=== PATIENT | female | born 1955 | race Caucasian/White ===

== ENCOUNTER 2017-09-30 10:01 | Inpatient (IN) | payer MEDICARE, SELFPAY ==
[2017-09-30] VITALS (24 sets, daily range): BP systolic 86–133; BP diastolic 55–107; PULSE 85–137; RESP 14–27; TEMP 36–37.3; O2SAT 87–100; BMI 17.4; BMI 17.8
--- NOTE | 2017-09-30 10:21 | ED.RN ---
PT LIVES ALONE. STATES FELL SOMETIME YESTERDAY UNSURE WHEN. POSSIBLY 1500 OR 1600. PT STATES LIVES ALONE. PT COLD. DRIED FECES NOTED TO BOTTOM OF FEET. PAYMENT POSTER NOTIFIED
--- NOTE | 2017-09-30 10:25 | CT_ITS ---
STUDY: CT BRAIN WITHOUT CONTRAST REASON FOR EXAM: Female, 62 years old. History of fall. RADIATION DOSAGE (If Supplied By Facility): CTDIvol = ( 44.99 ) mGy, DLP = ( 897.35 ) mGycm TECHNIQUE: Transaxial CT imaging of the brain was performed without administration of intravenous contrast material. Individualized dose optimization techniques were used for this CT. COMPARISON: None. FINDINGS: Normal soft tissue structures. Normal calvarium. Normal size ventricles and extra-axial spaces for the patient's age. Normal white matter tracts of the cerebral hemispheres. Normal basal ganglia and thalami. Normal brainstem. Normal cerebellum. There is no intracranial hemorrhage. There are no findings of an acute ischemic infarction. Normal visualized paranasal sinuses. CT/Brain/Head without Contrast IMPRESSION: Normal unenhanced CT scan of the brain. Electronically Signed: Cosmo Bravo MD at 12:58 EDT Tel [phone], Service support ,
--- NOTE | 2017-09-30 10:26 | EKG12_ITS ---
Test Reason : FOUND DOWN Blood Pressure : / mmHG Vent. Rate : 164 BPM Atrial Rate : 164 BPM P-R Int : 072 ms QRS Dur : 124 ms QT Int : 188 ms P-R-T Axes : 083 -83 085 degrees QTc Int : 310 ms Sinus rhythm Left axis deviation Lateral infarct , age undetermined Inferior infarct , age undetermined Abnormal ECG Confirmed by DAYO JEFFERS, KING ([id number]), pictures editor ISAIAS DAVENPORT ([id number]) on 10/08/2017 12:45:30 PM Referred By: BEBO Confirmed By:KING OSHEA MD
--- NOTE | 2017-09-30 10:26 | RAD_ITS ---
STUDY: X-RAY CHEST REASON FOR EXAM: Female, 62 years old. History of fall. TECHNIQUE: AP and lateral views of the chest. COMPARISON: None. FINDINGS: EKG electrodes are seen. Hyperinflation. Decreased bronchovascular markings in the upper lobes suggestive of emphysematous changes. Mild bibasilar atelectasis. There is no demonstrated pleural abnormality. Normal size heart. Normal mediastinum and leonel. Normal visualized pulmonary arteries. There is atherosclerotic tortuosity of the aortic arch and descending thoracic aorta. There are diffuse degenerative changes of the visualized thoracic spine. Healed left fractures. Prior cholecystectomy. RAD/Chest PA and Lateral IMPRESSION: Hyperinflation. Findings suggesting mild bibasilar atelectasis. Electronically Signed: Cosmo Bravo MD at 13:07 EDT Tel [phone], Service support ,
--- NOTE | 2017-09-30 10:27 | CT_ITS ---
STUDY: CT CERVICAL SPINE WITHOUT CONTRAST REASON FOR EXAM: Female, 62 years old. History of fall. RADIATION DOSAGE (If Supplied By Facility): CTDIvol = ( 12.03 ) mGy, DLP = ( 227.54 ) mGycm TECHNIQUE: High resolution transaxial imaging was performed without contrast material. Sagittal and coronal images were reconstructed. Individualized dose optimization techniques were used for this CT. COMPARISON: None FINDINGS: Normal craniovertebral junction. Normal anterior atlantoaxial articulation. Normal odontoid process. Normal cervical lordosis. Normal vertebral bodies and posterior osseous elements. C2-3: There is evidence of facet joint osteoarthritis and hypertrophy with bilateral neural foraminal stenosis. Uncovertebral arthrosis. C3-4: Moderate degree of disc space narrowing and disc degeneration. Marked degree of facet joint hypertrophy worse on the right side. Bilateral neural foraminal stenosis. Anterior listhesis of C3 on C4 most likely secondary to the facet joint osteoarthritis C4-5: Moderate degree of disc space narrowing. Subchondral sclerosis. Uncovertebral arthrosis. Facet joint osteoarthritis. Bilateral neural foraminal stenosis. C5-6: Marked degree of disc space narrowing. Spondylosis. Uncovertebral arthrosis. C6-7: Disc space narrowing. Atherosclerotic calcific plaque at the carotid bifurcations. Increased markings at the lung apices suggestive of scarring superimposed on emphysematous changes. CT/Spine Cervical without Contras IMPRESSION: Multilevel degenerative changes, as described above. Multilevel neural foraminal stenosis. Anterior listhesis of C3 on C4. Electronically Signed: Cosmo Bravo MD at 13:03 EDT Tel [phone], Service support ,
--- NOTE | 2017-09-30 10:27 | RAD_ITS ---
STUDY: X-RAY - PELVIS REASON FOR EXAM: Female, 62 years old. History of fall. TECHNIQUE: One view of the pelvis was obtained. COMPARISON: None. FINDINGS: There is a non-specific bowel gas pattern. Calcifications overlying the symphysis pubis most likely representing either calcified fibroids or possible urinary bladder calculi. Levoscoliosis of the lumbar spine. Normal bilateral iliac wings, sacroiliac joints and visualized sacrum. Normal visualized bilateral superior and inferior pubic rami. Normal pubic symphysis. Normal ischial tuberosities. Normal visualized right femoral head. Normal right acetabulum. Normal right hip joint. Normal visualized left femoral head. Normal left acetabulum. Normal left hip joint. RAD/Pelvis 1 or 2 Views IMPRESSION: No acute abnormality is seen. Electronically Signed: Cosmo Bravo MD at 13:06 EDT Tel [phone], Service support ,
--- NOTE | 2017-09-30 10:43 | ED.VISSUMM ---
- ER Visit Summary Date of Service: 09/30/17 Chief Complaint: Fall History of Present Illness: The patient is a [address] Crowley in [place]. She reports that she fell yesterday and was too weak to get up. She denies any blow to the head or loss of consciousness. She reports that she has neck pain is 5 out of 10 severity. She denies any back, shoulder, wrist, or hip pain. Patient reports that she has not been taking any of her medications for the past 2 months. She claims of a cough over the same timeframe. This is nonproductive. She denies any fever or chills. No chest pain or shortness of breath. She reports that she has had upper abdominal pain for the past 2 weeks. She has been nauseated without vomiting. She reports that her colostomy is draining normally. States that she has a headache is 6 out of 10 severity and generalized weakness. Physical Examination: Vitals: Stable. Afebrile. General: Well-developed and cachectic. Head: Normocephalic atraumatic. Neck: Supple, no lymphadenopathy. No JVD. Moderate tenderness that is diffuse over her neck. Cardiovascular: Regular rate and rhythm. No murmurs. Respiratory: No respiratory distress. Clear to auscultation bilaterally. Abdominal: Soft, mild tenderness palpation is diffuse over her upper abdomen, nondistended, normal bowel sounds. No guarding, rebound, or peritoneal signs. Back: Nontender. Extremities: Mild tenderness palpation to the right greater trochanter and moderate tenderness palpation of the left greater trochanter. No pain with internal/external rotation. Full range of motion without any difficulty. Skin: Normal color, no rash. Neurologic: Alert and oriented ?3. Cranial nerves II through XII are intact. Normal strength and sensation. Psych: Agitated. Test Results: EKG is sinus at 82 with very large T waves that are being counted twice. There are no ischemic changes. There is no old EKG for comparison. Her QRS is 124. CBC is more for a white count of 18.9 with 86 segmented neutrophils and 6 lymphocytes. Hemoglobin is 15.4. Chem-7 is remarkable for a BUN of 141 and creatinine of 8.47. CO2 is 7. Potassium is 8.8. Glucose is 120. Her creatinine last year was 1.381.69. Lactic acid is normal. LFTs marked for alk phos 163 and lipase of 477. CPKs normal. Blood alcohol level 0. Troponin is negative. Chest x-ray shows chronic changes. Pelvis x-ray shows no acute disease. CT brain is normal. CT C-spine shows degenerative changes. Emergency Department Course and Treatment: Patient had an IV placed. She is given a liter normal saline. She was given fentanyl and Zofran IV. The patient was treated with thank you bicarb, insulin, D50, and calcium gluconate for her hyperkalemia. She was given Kayexalate p.o. Patient was discussed with her son who reports that she is an alcoholic. She was given Ativan IV. Treatment Plan: Patient will be admitted to the ICU for further evaluation and treatment. She was discussed with Dr. Pittman. Disposition: Admitted in critical condition Impression: 1. Acute renal failure. 2. Hyperkalemia. 3. Alcoholism. 4. Critical care time 30 minutes. This note was generated with [employer] dictation software. It may contain incorrect words, spelling, and punctuation that were not noted in review of the chart prior to signing ED Disposition - Plan for ED Patient: Chief Complaint: Fall Referrals: Darshan Burns [Primary Care Provider] -
--- NOTE | 2017-09-30 10:46 | CASEMGMT ---
Addendum entered by Aliza Dennis 09/30/17 14:39: Original Note: Social Work Note Referral from bedside RN, Nivia Bhakta. Pt presented to ED after being found on the floor of her apartment. Has a colostomy bag, presented unkempt and with dog feces on the bottom of her feet. Per nursing pt is oriented to self only presently. Placed call to the pt's son, Ajit Silva. Per Ajit the pt lives in a second floor apartment with elevator access. He reports that this is not the first time she has had an episode like this and that she has been off of her medications for approximately a month. States that she is not compliant with them anyways, but that her insurance, [employer], will not pay for them at her usual pharmacy and they have to use the mail order pharmacy. Believes that she just got a delivery of medications yesterday. States that she also drinks with her medications which she would not do. He is unsure of how much she drinks, but states she at least tries to every day. Feels that he cannot stop her as she has done this for 45 years. Support provided. Per Ajit he is the payee and has POA, but is not sure he has HCPOA. Request that he bring documentation to hospital for review and SW may be able to assist with HCPOA if the pt becomes alert and oriented x3. Understanding expressed. Per Ajit the pt has been to [facility] and [facility] in the past. Reports that out of the past 15 years he would guess she has spent 2-3 in nursing homes. Confirms that the pt's PCP is Dr. Darshan Burns and her pharmacy is [facility]. Unsure of discharge plan at this time and inform that SW will f/u once pt admitted to unit. Placed call to Corey Escalante, with APS. Made report and suggested guardianship as son reports this is not the first episode and the PCP may be willing to document an expert evaluation for her inability to manage diagnoses and care. Informed that pt is anticipated to be admitted and inpatient SW can f/u with disposition once determined. Capri Mena, NUCLEAR PHYSICIAN, MUSHROOM PICKER
[2017-09-30] MEDS: 0.9% Normal Saline 1,000 ML 1000 ML IV (10:50)
[2017-09-30] MEDS: fentaNYL 100 MCG/2 ML Ampul 50 MCG IV (10:50)
[2017-09-30] MEDS: Ondansetron 4 MG/2 ML Vial IV (10:50)
[2017-09-30] MEDS: LORazepam 2 MG/ML Syringe 1 MG IV ×2 (11:32→13:46)
[2017-09-30 12:05] LABS: Absolute Lymphocyte Count 1.19 X10^3/ul (0.83-4.51); Absolute Neutrophil Count 16.2 X10^3/uL (2.0-7.7); Hematocrit 46.6 % (37-47); Hemoglobin 15.4 g/dl (12.0-15.0); Lymphocyte # 1.19 X10^3/ul (4.0); Lymphocyte % 6.3 % (19-41); Mean Corpuscular Hgb 34.5 pg (27.0-32.0); Mean Corpuscular Volume 104.3 fL (81-99); Mean Platelet Vol. 9.2 fl (6.2-12.0); Monocyte# 1.47 X10^3/uL; Monocyte% 7.8 % (0-10); Neutrophil # 16.24 X10^3/uL (2.7-7.7); Neutrophil % 85.7 % (47-70); Platelet Count 371 K/mm3 (150-450); RBC Distribution Width CV 15.1 % (11.6-14.6); RBC Distribution Width SD 57.5 fl (35.1-43.9); Red Blood Count 4.47 M/mm3 (4.2-5.4); White Blood Count 18.9 K/mm3 (4.4-11.0)
--- NOTE | 2017-09-30 12:05 | ED.RN ---
Bilateral elbows, ankles and outer sides of feet purple, originally thought it was related to being cold, but color has not improved with warm blankets. colostomy bag not attached correctly either, pt cleaned up and bag reattached.
[2017-09-30 12:09] LABS: Differential Indicated SCAN CRITERIA MET; POSITIVE COUNT NO; POSITIVE DIFFERENTIAL NO; POSITIVE MORPHOLOGY YES
[2017-09-30 12:22] LABS: CPK Total, Creatine Kinase 59 U/L (26-192)
[2017-09-30 12:30] LABS: Bacteria 0 SEEN /hpf (None Seen); Mucous, Urine 0 SEEN /hpf (<or=2+); White Blood Cells 0 SEEN /hpf (0-5)
[2017-09-30 12:31] LABS: Color, Urine Yellow (Yellow); Glucose, Dipstick Normal (Normal); Ketone-Dipstick Negative (Negative); Leukocyte Esterase-Dipstick Negative /ul (Negative); Nitrite-Dipstick Negative (Negative); Occult Blood-Urine 10 /ul (Negative); Protein-Dipstick 15 mg/dl (Negative); Specific Gravity, Urine 1.015 (1.002-1.030); Urine Bilirubin Dipstick Negative (Negative); Urine Clarity Sl. Cloudy (Clear); Urine Urobilinogen Normal (Normal)
[2017-09-30 12:37] LABS: Red Blood Cells-Urine 0-5 SEEN /hpf (0-5); Squamous Epithelial Cells - UA 0-5 SEEN /hpf (5-10)
[2017-09-30 12:42] LABS: Lactic Acid 1.2 mmol/L (0.4-2.0)
[2017-09-30 12:45] LABS: Alcohol, Blood (Medical)-Serum < 3.0 mg/dL
[2017-09-30 12:47] LABS: ALB/GLOB Ratio 0.9 RATIO (0.9-2.4); AST(SGOT) 20 U/L (15-37); Alanine Aminotransfer ALT/SGPT 22 U/L (13-56); Albumin, Serum 3.5 g/dL (3.2-5.0); Alkaline Phosphatase 163 U/L (45-117); Anion Gap 17 (5-15); BUN 141 mg/dL (7-18); BUN/Creat Ratio 16.6 RATIO (10-20); Calcium,Total 7.8 mg/dL (8.5-10.1); Chloride 109 mmol/L (98-107); Creatinine, Serum 8.47 mg/dL (0.55-1.02); EST Glomerular Filtration Rate 5 mL/min (>60); Est Glom Filt Rate - Afr Amer 6 mL/min (>60); Estimated Creatinine Clearance 4.87 ml/min; Glucose 120 mg/dL (74-106); Lipase 427 U/L (73-393); Potassium 8.8 mmol/L (3.5-5.1); Protein, Total 7.5 g/dL (6.4-8.2); Sodium Level 133 mmol/L (136-145)
[2017-09-30] MEDS: Albuterol 2.5 MG/3 ML VIAL.NEB. INHALATION (13:10)
[2017-09-30] MEDS: Sodium Bicarbonate 8.4% 50 ML Syringe 50 MEQ IV (13:22)
[2017-09-30] MEDS: Calcium Gluconate 1 GM/10 ML Vial IV (13:22)
[2017-09-30] MEDS: 0.9% Normal Saline 1,000 ML 999 ML IV ×2 (13:22→15:08)
[2017-09-30] MEDS: Dextrose 50%-Water 25 GM/50 ML DISP.SYRIN IV (13:22)
--- NOTE | 2017-09-30 14:04 | HP.PCM_ITS ---
History of Present Illness Date of Admission: 09/30/17 Chief Complaint: Found down The patient is a 62 year old F with past medical history of stage III chronic kidney disease, status post colostomy, essential hypertension who was found down at home today Apparently the patient was tried to make a bed at around 11 and 12 yesterday and fell, she tried to reconcile but unable to get up from his forehead down today and called the EMS and she was taken to the emergency room for further management. The patient was noted to be used, dishevelled with cold clammy skin. In the ED, CAT scan of the brain and neck did not reveal any acute findings. she is noted to have multilevel degenerative disc disease in the C-spine. She is found to have acute kidney injury with creatinine of 8.47, bicarbonate of 7, potassium of 8.8, sodium 133, WBC of 18.9. Her EKG showed sinus tachycardia with short WI interval with frequent PVCs. Treated with IV insulin and dextrose as well as sodium bicarbonate and calcium gluconate. When I saw her in the emergency room she appeared to be confused , she was mildly agitated and tremulous. She remains hemodynamically stable. Past Medical History Allergies No Known Allergies Allergy (Verified 10/21/16 13:39) Home Medications: Ambulatory Orders Medication Instructions Recorded Aspirin [Aspir-Low] 81 mg PO DAILY 10/21/16 Calcium Carbonate/Vitamin D3 1 each PO BID 10/21/16 [Calcium 600 + Vit D Caplet] Ferrous Sulfate 325 mg PO BID 10/21/16 Fluoxetine HCl 40 mg PO BID 10/21/16 Folic Acid 1 mg PO DAILY@0800 10/21/16 Hydrochlorothiazide 12.5 mg PO DAILY 10/21/16 Multivitamins,Ther W-Minerals 1 tablet PO DAILY 10/21/16 [Multivitamin With Minerals] Omeprazole [Prilosec] 20 mg PO DAILY 10/21/16 Oxybutynin [Ditropan] 10 mg PO DAILY 10/21/16 Potassium Chloride [K-Dur] 20 meq PO BID 10/21/16 Pramipexole Di-HCl [Mirapex] 0.25 mg PO DAILY 10/21/16 Quetiapine Fumarate [Seroquel] 25 mg PO DAILY 10/21/16 Quetiapine Fumarate [Seroquel] 400 mg PO DAILY 10/21/16 Sodium Bicarbonate 650 mg PO DAILY 10/21/16 Valproic Acid [Depakene] 250 mg PO TID 10/21/16 Vitamin E 400 units PO TID 10/21/16 Lisinopril [Zestril] 20 mg PO DAILY 09/30/17 Loperamide [Imodium] 2 mg PO BID PRN PRN 09/30/17 Mirtazapine [Remeron] 15 mg PO QHS 09/30/17 Sodium Bicarbonate 1,300 mg PO DAILY 09/30/17 Spironolactone [Aldactone] 25 mg PO DAILY 09/30/17 Smoking Status: Current every day smoker - *Family History Maternal History Items: No pertinent history Review of Systems Comment: Unable to obtain due to confusion. VTE Information - Inpt Only VTE Present on Admission: No VTE Mechan Device Prophylaxis: SCD's VTE Pharm Prophylaxis ordered?: Yes - Physical Exam General: Confused, Disoriented, Non-Cooperative HEENT: Atraumatic Oral: Dry Mucosa Neck: Supple Lungs: Clear to auscultation Cardiovascular: Regular rate, Normal S1, Normal S2 Abdomen: Bowel Sounds Present, Soft, Non Tender Extremities: No edema Neurological: Cranial nerves II-XII grossly intact, Deep Tendon Reflexes 2+/4 and Symmetrical, Motor Exam 5/5 strength throughout Psych/Mental Status: Normal Affect Vital Signs Temp Pulse Resp BP Pulse Ox 96.8 F L 110 H 22 H 132/107 H 95 09/30/17 10:02 09/30/17 13:47 09/30/17 13:47 09/30/17 13:47 09/30/17 13:47 Oxygen Delivery Method Room Air Assessment/Plan 1. Acute metabolic encephalopathy; CT scan of the brain is nonacute, we will continue to monitor patient closely with the expectation that her mental status would improve with correction of her metabolic derangements. 2. Acute kidney injury superimposed on stage III chronic kidney disease; we will hydrate with IV fluids and avoid potential nephrotoxic agents, we will dose medications based on her current GFR, we will obtain renal ultrasound and consult public policy mediator. 3. Metabolic acidosis; this is most likely due combination of #2 and loss of bicarb from her colostomy, I would place her on sodium bicarb drip. 4. Severe hyperkalemia; the patient received sodium bicarbonate, calcium gluconate, IV insulin and dextrose as well as Kayexalate which she refused to take. I would repeat a potassium level now and give another round of treatment if need be. 5. Leukocytosis of unclear etiology; see any evidence of infection at this point, chest x-ray did not show any pneumonia and urinalysis showed no pyuria. We will continue to monitor and repeat CBC in a.m. 6. status Post fall; PT/OT eval and treatment when appropriate, the patient may benefit from ECF placement due to risk of recurrent falls. 7. DVT prophylaxis with subcutaneous heparin. Code Visit Inpatient E&M: 21350 Init Hosp L3
[2017-09-30 14:14] LABS: Valproic Acid (Depakene) Level 10 ug/mL (50-100)
[2017-09-30 15:21] LABS: Anion Gap 15 (5-15); BUN 139 mg/dL (7-18); BUN/Creat Ratio 17.8 RATIO (10-20); Calcium,Total 7.8 mg/dL (8.5-10.1); Chloride 112 mmol/L (98-107); Creatinine, Serum 7.82 mg/dL (0.55-1.02); EST Glomerular Filtration Rate 6 mL/min (>60); Est Glom Filt Rate - Afr Amer 7 mL/min (>60); Estimated Creatinine Clearance 4.91 ml/min; Glucose 123 mg/dL (74-106); Potassium 7.8 mmol/L (3.5-5.1); Sodium Level 137 mmol/L (136-145)
--- NOTE | 2017-09-30 15:22 | CON.PCM_ITS ---
Problem List (1) Alcoholism Status: Suspected (2) Acute renal failure Status: Acute Qualifiers: Acute renal failure type: with acute renal cortical necrosis Qualified Code (s): N17.1 - Acute kidney failure with acute cortical necrosis (3) Hyperkalemia Status: Acute (4) Malnutrition of moderate degree Status: Chronic Reason for Consult Date of Consultation: 09/30/17 Reason for Consultation: Hyperkalemia History of Present Illness: The patient is a 62 year old F, with little known past medical history, who presented to [facility] on 09/30/2017 after being found down at home. Patient reportedly tried to make a bed around 11 or 12 yesterday and fell and was unable to stand back up. Per report, patient was found disheveled with cold clammy skin and covered in dog feces. Patient is unable to provide any history at this time. Patient's son reportedly talked to nursing in the ER and stated that she is a longtime alcoholic and that she was a full code. He is unable to be reached at this time. In the emergency department, CT scans did not reveal any acute findings. Patient was noted to have a creatinine of 8.47, bicarbonate of 7, potassium of 8.8 and leukocytosis. Patient was given a hyperkalemia cocktail, but reportedly refused p.o. Kayexalate. Patient was given 2 L of IV fluids with some urine output reported. Patient was reportedly confused and mildly agitated , but no seizure activity was reported. Unknown last drink history. Unknown if patient has a history of DTs. Per report, patient has not taken any medications in the last 2 months. Past Medical History Past Medical History (Chronic Problems): Chronic Problems Malnutrition of moderate degree (Chronic) Allergies No Known Allergies Allergy (Verified 10/21/16 13:39) Home Medications: Ambulatory Orders Medication Instructions Recorded Aspirin [Aspir-Low] 81 mg PO DAILY 10/21/16 Calcium Carbonate/Vitamin D3 1 each PO BID 10/21/16 [Calcium 600 + Vit D Caplet] Ferrous Sulfate 325 mg PO BID 10/21/16 Fluoxetine HCl 40 mg PO BID 10/21/16 Folic Acid 1 mg PO DAILY@0800 10/21/16 Hydrochlorothiazide 12.5 mg PO DAILY 10/21/16 Multivitamins,Ther W-Minerals 1 tablet PO DAILY 10/21/16 [Multivitamin With Minerals] Omeprazole [Prilosec] 20 mg PO DAILY 10/21/16 Oxybutynin [Ditropan] 10 mg PO DAILY 10/21/16 Potassium Chloride [K-Dur] 20 meq PO BID 10/21/16 Pramipexole Di-HCl [Mirapex] 0.25 mg PO DAILY 10/21/16 Quetiapine Fumarate [Seroquel] 25 mg PO DAILY 10/21/16 Quetiapine Fumarate [Seroquel] 400 mg PO DAILY 10/21/16 Sodium Bicarbonate 650 mg PO DAILY 10/21/16 Valproic Acid [Depakene] 250 mg PO TID 10/21/16 Vitamin E 400 units PO TID 10/21/16 Lisinopril [Zestril] 20 mg PO DAILY 09/30/17 Loperamide [Imodium] 2 mg PO BID PRN PRN 09/30/17 Mirtazapine [Remeron] 15 mg PO QHS 09/30/17 Sodium Bicarbonate 1,300 mg PO DAILY 09/30/17 Spironolactone [Aldactone] 25 mg PO DAILY 09/30/17 Smoking Status: Current every day smoker - *Family History Maternal History Items: No pertinent history Review of Systems Unable to obtain accurate/complete ROS d/t: See HPI Patient Problems: Active and Suspected Problems Alcoholism (Suspected) Acute renal failure (Acute) Hyperkalemia (Acute) Objective: All imaging was personally reviewed and I agree with the formal interpretation. Chest x-ray did show some hyperinflation, but no obvious infiltrates are appreciated. - Physical Exam General: Alert, Confused, Disoriented, - - Active chills noted. Cachectic. Not interacting appropriately. HEENT: Atraumatic, PERRLA, EOMI, Normocephalic, - - Scleral icterus or injection noted. Oral: No Gingival or Mucosal Lesions/ Ulcerations, Dry Mucosa Neck: Supple, No JVD, No Nodes, Trachea Midline Lungs: No rhonchi, No wheeze, No rales, Diminished Cardiovascular: Normal S1, Normal S2, No murmurs, No rub noted, No Gallop, Tachycardic Abdomen: Bowel Sounds Present, Soft, Non Tender, Non-Distended, - - Colostomy is clean, dry and intact. No blood noted. Extremities: No cyanosis, No edema, Clubbing, Diminished Peripheral Pulses Skin: Ulcer/ Wound - Stage I decubitus on the right hip., - - Scattered small ecchymotic areas. Musculoskeletal: No Tenderness to Palpation of Joints or Extremities, Cachexia, Muscle Wasting Lymphatic: No Cervical, Supraclavicular, or Inguinal Adenopathy Neurological: - - Significant tremor noted in all extremities. Moves all extremities spontaneously. Sensation appears to be intact. No nystagmus or facial droop is appreciated. Psych/Mental Status: Impulsive, Restless Vital Signs Temp Pulse Resp BP Pulse Ox 36.0 C L 110 H 22 H 132/107 H 95 09/30/17 10:02 09/30/17 13:47 09/30/17 13:47 09/30/17 13:47 09/30/17 13:47 Oxygen Delivery Method Room Air Weight: 42.8 kg Body Mass Index (BMI) 17.8 Laboratory Tests Past 24 Hrs 09/30/17 09/30/17 14:40 15:00 Sodium Pending Potassium Pending Chloride Pending Carbon Dioxide Pending Anion Gap Pending BUN Pending Creatinine Pending Est GFR (MDRD) Af Amer Pending Est GFR (MDRD) Non-Af Pending BUN/Creatinine Ratio Pending Glucose Pending Calcium Pending MRSA (PCR) Pending Assessment/Plan Active and Suspected Problems Alcoholism (Suspected) Acute renal failure (Acute) Hyperkalemia (Acute) RECOMMENDATIONS: 1. Aggressive fluid resuscitation 2. Initiate bicarbonate drip 3. Possible need for renal replacement therapy 4. CIWA protocol 5. Repeat chest x-ray tomorrow 6. ST/PT/OT consults 7. Attempt to get more information from son/verify CODE STATUS IMPRESSIONS: 1. Acute kidney injury on CKD stage III/severe hyperkalemia/metabolic acidosis Unclear etiology at this time. Patient does appear to have urine output. Will attempt to volume resuscitate. Patient has been placed on a bicarbonate drip. Patient does have a colostomy, but is refusing to take any Kayexalate at this time. Cannot exclude the need for urgent renal replacement therapy. Nephrology has been consulted. Await their recommendations. 2. Metabolic encephalopathy Patient with multiple etiologies for metabolic encephalopathy including uremia, alcohol withdrawal, severe hyperkalemia, malnutrition and renal failure. Will attempt to address electrolytes. Continue with delirium protocol. Patient is on benzodiazepines for alcohol withdrawal. 3. Probable alcohol withdrawal Reported alcohol history at baseline. Unclear when patient's last drink was. Patient does have some Depakote in her system, but no alcohol. Patient has been placed on CIWA protocol. 4. Found down Patient's CPK is not very elevated at this time. It is unclear if this is secondary to decreased perfusion or low muscle mass. Patient does have a stage I decubitus ulcer on her right hip. Continue to trend troponins. 5. Poor background information/malnutrition/possible psychiatric illness Complicates care, management, recovery and prognosis. Unable to verify baseline medications. Patient has not been on medications for the last 2 months. Would hold all nonnecessary medications. Patient will need a swallow study before any p.o. intake. TIME: 45 minutes critical care time spent addressing patient's acute kidney injury , metabolic encephalopathy, alcohol withdrawal, review of all data and collaboration with care team. Code Visit 9xxxx: [id number] Critical care first hour
[2017-09-30 16:00] LABS: International Normalized Ratio 1.2; Prothrombin Time (Protime)PT. 14.9 SECONDS (11.7-14.9)
[2017-09-30 16:01] LABS: Partial Thromboplast Time 26.8 Seconds (24.1-36.2)
[2017-09-30 16:05] LABS: Base Excess -24 mmol/L (-2 to +2); Bicarbonate 5.9 mmol/L (22-26); Blood Gas Specimen Type ART; O2 Delivery Device Nasal Can; PO2 83 mmHG (75-100); SITE L Brachial; SO2 92 % (95-99); Time Given 1602; Total Carbon Dioxide 6 mmol/L; pCO2 18.2 mmHg (35-45); pH 7.12 (7.35-7.45)
[2017-09-30] MEDS: 0.9% Normal Saline 1,000 ML 75 ML IV (16:19)
[2017-09-30 17:34] LABS: M R Staph aureus DNA By PCR Negative (Negative); Probe Check PASS; Specimen Processing Control PASS
--- NOTE | 2017-09-30 19:00 | RAD_ITS ---
STUDY: X-RAY - ABDOMEN/PELVIS REASON FOR EXAM: Female, 62 years old. NG tube placement. TECHNIQUE: Single AP view of the abdomen / pelvis. COMPARISON: None. FINDINGS: Normal visualized lung bases. NG tube traverse the GE junction with tip overlying the distal stomach. Scattered areas of small bowel dilatation are present without significant air-fluid levels. There is no demonstrated free abdominal air. The visualized liver, spleen and kidneys are grossly normal in size and morphology. Normal soft tissue structures. Normal visualized osseous structures. RAD/Abdomen Single View (Portable) IMPRESSION: 1. NG tube tip overlies the distal stomach. 2. Scattered central areas of small bowel dilatation. Electronically Signed: Pete Toussaint DO at 22:59 EDT , Service support ,
[2017-09-30 19:10] LABS: Urine Sodium 56 mmol/L (Not Establ.)
[2017-09-30 20:42] LABS: Anion Gap 15 (5-15); BUN 135 mg/dL (7-18); BUN/Creat Ratio 19.1 RATIO (10-20); Calcium,Total 7.4 mg/dL (8.5-10.1); Chloride 114 mmol/L (98-107); Creatinine, Serum 7.08 mg/dL (0.55-1.02); EST Glomerular Filtration Rate 6 mL/min (>60); Est Glom Filt Rate - Afr Amer 8 mL/min (>60); Estimated Creatinine Clearance 5.42 ml/min; Glucose 109 mg/dL (74-106); Potassium 7.1 mmol/L (3.5-5.1); Sodium Level 140 mmol/L (136-145)
[2017-09-30] MEDS: 0.9% NaCl Peripheral Flush Adult/Peds IV (22:20)
[2017-09-30] MEDS: LORazepam 2 MG/ML Syringe IV (22:20)
--- NOTE | 2017-09-30 22:32 | PCM.CONS.R ---
Consultation - Renal 09/30/17 PCP/ Referring MD: Requesting physician: Dr Pittman Primary care physician: Darshan Burns Reason for Consultation:: AMY, hyperkalemia, severe metabolic acidosis - History of Present Illness History of Present Illness: The patient is a 62 year old F admitted for AMY, hyperkalemia after falling at home, unable to get up due to weakness. She was found down for unknown period of time after she was able to call EMS. She has history of chronic kidney disease stage 3 with baseline creatinine 1.38 in January 2017, s/p colostomy for bacterial infection, and essential hypertension. She is a poor historian, agitated, confused, disoriented. She has a history of alcohol abuse, hospitalized multiple times for similar events according to her son. In the ED, CT of the brain was negative for acute changes. She had a creatinine of 8.47, bicarbonate of 7, potassium of 8.8, sodium 133, WBC of 18.9. EKG showed sinus tachycardia with peaked T waves. She was treated with IV insulin and dextrose as well as sodium bicarbonate and calcium gluconate. She received 3L fluid bolus and continued on iv fluids with bicarbonate drip. She has brown liquid stool in ostomy. She has clear yellow urine in valencia. She was not able to take kayexalate orally due to confusion. Medication list included diuretics, lisinopril, potassium supplement, spironolactone but unclear if she has been taking any of her medications. - Allergies Allergies: Allergies No Known Allergies Allergy (Verified 10/21/16 13:39) - Current Medications Current Medications: Current Medications [facility] Ferrous Sulfate (Ferrous Sulfate) 325 mg NG BIDCM [facility] Fluoxetine HCl (Prozac) 40 mg NG BID [facility] Heparin Sodium (Porcine) (Heparin Na) 5,000 unit SC BID [facility] Sodium Bicarbonate 150 meq/ (Dextrose) 1,150 mls @ 75 mls/hr IV .[id number] [facility] Last Admin: 09/30/17 15:39 Dose: 75 mls/hr Sodium Chloride () 1,000 mls @ 75 mls/hr IV .[id number] [facility] Last Admin: 09/30/17 16:19 Dose: 75 mls/hr Folic Acid 1 mg/ Sodium (Chloride) 50.2 mls @ 200 mls/hr IV DAILY [facility] Last Admin: 09/30/17 16:19 Dose: 200 mls/hr Thiamine HCl 100 mg/ Sodium (Chloride) 51 mls @ 200 mls/hr IV DAILY [facility] Last Admin: 09/30/17 16:01 Dose: 200 mls/hr Sodium Chloride () 250 mls @ 999 mls/hr IV .Q16M ONE Stop: 09/30/17 22:40 Loperamide HCl (Imodium) 2 mg NG BID PRN PRN PRN Reason: diarrhea Lorazepam (Ativan) 2 mg IV Q2H PRN PRN; Protocol PRN Reason: CIWA score > 8 but <15 Lorazepam (Ativan) 2 mg IV UD PRN; Protocol PRN Reason: CIWA score >/=15. Lorazepam (Ativan) 2 mg NG Q2H PRN PRN; Protocol PRN Reason: CIWA score > 8 but <15 Lorazepam (Ativan) 2 mg NG UD PRN; Protocol PRN Reason: CIWA score >/=15. Magnesium Hydroxide (Milk Of Magnesia) 30 ml NG DAILY PRN PRN PRN Reason: Constipation Mirtazapine (Remeron) 15 mg NG QHS [facility] Pantoprazole Sodium (Protonix) 20 mg PO DAILY [facility] Pramipexole Dihydrochloride (Mirapex) 0.25 mg NG DAILY [facility] Quetiapine Fumarate (Seroquel) 25 mg NG DAILY [facility] Sodium Chloride () 5 - 30 ml IV UD PRN PRN Reason: SALINE FLUSH Valproic Acid (Depakene) 250 mg NG TID [facility] - Past Medical History Past Medical History (Chronic Problems): Chronic Problems Depression (Chronic) Hypertension (Chronic) Stage III chronic kidney disease (Chronic) Alcoholism (Chronic) Acute renal failure (Chronic) Malnutrition of moderate degree (Chronic) - Past Surgical History Surgical History: - - ostomy - Social History Smoking Status: Current every day smoker - Family History Maternal History Items: Unknown, - - unknown, pt unable to provide history Paternal History Items: Unknown Review of Systems Unable to obtain accurate/complete ROS d/t: confused, agitated, combative, uncooperative, yelling out wants to go home Patient Problems: Active and Suspected Problems Metabolic acidosis (Acute) Status post end ileostomy (Acute) Acute on chronic renal failure (Acute) Hyperkalemia (Acute) Ischemia of stoma (Suspected) - Physical Exam General: Confused, Disoriented, Non-Cooperative, - - agitated, combative, tremulous lips, mouth/jaw HEENT: PERRLA, EOMI Oral: Dry Mucosa Neck: Supple Lungs: Clear to auscultation Cardiovascular: No rub noted, Tachycardic Abdomen: Bowel Sounds Present, Soft, Non Tender, - - ostomy with brown liquid stool Extremities: No edema Skin: No rashes, - - tattoo on ankles Musculoskeletal: Cachexia, Muscle Wasting Neurological: - - restless, combative Psych/Mental Status: Agitated, Anxious Vital Signs Temp Pulse Resp BP Pulse Ox 98.0 F 125 H 22 H 123/70 H 90 09/30/17 16:00 09/30/17 21:00 09/30/17 21:00 09/30/17 21:00 09/30/17 16:00 Oxygen Flow Rate (L/min) 3 Oxygen Delivery Method Nasal Cannula Weight: 42.8 kg Body Mass Index (BMI) 17.8 Intake and Output for Last 24 Hours 09/28/17 09/29/17 09/30/17 23:59 23:59 23:59 Intake Total 1891 / 1891 Output Total 1300 / 1300 Balance 591 / 591 Laboratory Tests Past 24 Hrs 09/30/17 09/30/17 09/30/17 14:40 15:00 15:40 PT 14.9 INR 1.2 APTT 26.8 Specimen Type Sample Site pH Bicarbonate Actual POC Total CO2 Base Excess O2 Saturation ABG pCO2 ABG pO2 O2 Delivery Device Liter Flow Blood Gas Notified Whom Blood Gas Notified Time Sodium 137 Potassium 7.8 H* Chloride 112 H Carbon Dioxide 10.0 L Anion Gap 15 BUN 139 H* Creatinine 7.82 H* Estim Creat Clear Calc 4.91 Est GFR (MDRD) Af Amer 7 L Est GFR (MDRD) Non-Af 6 L BUN/Creatinine Ratio 17.8 Glucose 123 H Calcium 7.8 L Ur Random Sodium Urine Creatinine MRSA (PCR) Negative 09/30/17 09/30/17 09/30/17 16:03 18:50 19:53 PT INR APTT Specimen Type ART Sample Site L Brachial pH 7.12 L* Bicarbonate Actual 5.9 L POC Total CO2 6 Base Excess -24 L O2 Saturation 92 L ABG pCO2 18.2 L* ABG pO2 83 O2 Delivery Device Nasal Can Liter Flow 3.0 Blood Gas Notified Whom ICU Blood Gas Notified Time 1602 Sodium 140 Potassium 7.1 H* Chloride 114 H Carbon Dioxide 11.0 L Anion Gap 15 BUN 135 H* Creatinine 7.08 H Estim Creat Clear Calc 5.42 Est GFR (MDRD) Af Amer 8 L Est GFR (MDRD) Non-Af 6 L BUN/Creatinine Ratio 19.1 Glucose 109 H Calcium 7.4 L Ur Random Sodium 56 Urine Creatinine 68.40 MRSA (PCR) Clinical Impression(s) from Imaging Studies Brain CT 09/30/17 10:25 IMPRESSION: Normal unenhanced CT scan of the brain. Electronically Signed: Cosmo Bravo MD at 12:58 EDT Tel [phone], Service support , Chest X-Ray 09/30/17 10:26 IMPRESSION: Hyperinflation. Findings suggesting mild bibasilar atelectasis. Electronically Signed: Cosmo Bravo MD at 13:07 EDT Tel [phone], Service support , Cervical Spine CT 09/30/17 10:27 IMPRESSION: Multilevel degenerative changes, as described above. Multilevel neural foraminal stenosis. Anterior listhesis of C3 on C4. Electronically Signed: Cosmo Bravo MD at 13:03 EDT Tel [phone], Service support , Pelvis X-Ray 09/30/17 10:27 IMPRESSION: No acute abnormality is seen. Electronically Signed: Cosmo Bravo MD at 13:06 EDT Tel [phone], Service support , Assessment/Plan Active and Suspected Problems Metabolic acidosis (Acute) Status post end ileostomy (Acute) Acute on chronic renal failure (Acute) Hyperkalemia (Acute) Ischemia of stoma (Suspected) 1. AMY due to profound dehydration, ATN. continue fluid resuscitation. Check urine sodium, creatine. 2. Metabolic, Uremic encephalopathy with DT's 3 Acute hyperkalemia persistent, unresponsive to medical therapy. correct with dialysis 4. Shock with leukocytosis, cx sent. 5. Severe AG metabolic acidosis refractory to bicarbonate replacement. Correct with urgent dialysis 6. Hx ETOH abuse per pt son 7. s/p colostomy with high ostomy output, increased GI loss. 8. Urgent dialysis tonight. Pt son consent to dialysis and dialysis catheter placement. Seen on dialysis, run even on 2K for 2.5hrs.
--- NOTE | 2017-09-30 22:42 | CON.PCM_ITS ---
Consultation - Renal 09/30/17 PCP/ Referring MD: Requesting physician: Dr Pittman Primary care physician: Darshan Burns Reason for Consultation:: AMY, hyperkalemia, severe metabolic acidosis - History of Present Illness History of Present Illness: The patient is a 62 year old F admitted for AMY, hyperkalemia after falling at home, unable to get up due to weakness. She was found down for unknown period of time after she was able to call EMS. She has history of chronic kidney disease stage 3 with baseline creatinine 1.38 in January 2017, s/p colostomy for bacterial infection, and essential hypertension. She is a poor historian, agitated, confused, disoriented. She has a history of alcohol abuse, hospitalized multiple times for similar events according to her son. In the ED, CT of the brain was negative for acute changes. She had a creatinine of 8.47, bicarbonate of 7, potassium of 8.8, sodium 133, WBC of 18.9. EKG showed sinus tachycardia with peaked T waves. She was treated with IV insulin and dextrose as well as sodium bicarbonate and calcium gluconate. She received 3L fluid bolus and continued on iv fluids with bicarbonate drip. She has brown liquid stool in ostomy. She has clear yellow urine in [place]. She was not able to take kayexalate orally due to confusion. Medication list included diuretics, lisinopril, potassium supplement, spironolactone but unclear if she has been taking any of her medications. - Allergies Allergies: Allergies No Known Allergies Allergy (Verified 10/21/16 13:39) - Current Medications Current Medications: Current Medications [facility]ir[facility], [facility]) [facility] Ferrous Sulfate (Ferrous Sulfate) 325 mg NG BIDCM [facility] Fluoxetine HCl (Prozac) 40 mg NG BID [facility] Heparin Sodium (Porcine) (Heparin Na) 5,000 unit SC BID [facility] Sodium Bicarbonate 150 meq/ (Dextrose) 1,150 mls @ 75 mls/hr IV .[id number] [facility] Last Admin: 09/30/17 15:39 Dose: 75 mls/hr Sodium Chloride () 1,000 mls @ 75 mls/hr IV .[id number] [facility] Last Admin: 09/30/17 16:19 Dose: 75 mls/hr Folic Acid 1 mg/ Sodium (Chloride) 50.2 mls @ 200 mls/hr IV DAILY [facility] Last Admin: 09/30/17 16:19 Dose: 200 mls/hr Thiamine HCl 100 mg/ Sodium (Chloride) 51 mls @ 200 mls/hr IV DAILY [facility] Last Admin: 09/30/17 16:01 Dose: 200 mls/hr Sodium Chloride () 250 mls @ 999 mls/hr IV .Q16M ONE Stop: 09/30/17 22:40 Loperamide HCl (Imodium) 2 mg NG BID PRN PRN PRN Reason: diarrhea Lorazepam (Ativan) 2 mg IV Q2H PRN PRN; Protocol PRN Reason: CIWA score > 8 but <15 Lorazepam (Ativan) 2 mg IV UD PRN; Protocol PRN Reason: CIWA score >/=15. Lorazepam (Ativan) 2 mg NG Q2H PRN PRN; Protocol PRN Reason: CIWA score > 8 but <15 Lorazepam (Ativan) 2 mg NG UD PRN; Protocol PRN Reason: CIWA score >/=15. Magnesium Hydroxide (Milk Of Magnesia) 30 ml NG DAILY PRN PRN PRN Reason: Constipation Mirtazapine (Remeron) 15 mg NG QHS [facility] Pantoprazole Sodium (Protonix) 20 mg PO DAILY [facility] Pramipexole Dihydrochloride (Mirapex) 0.25 mg NG DAILY [facility] Quetiapine Fumarate (Seroquel) 25 mg NG DAILY [facility] Sodium Chloride () 5 - 30 ml IV UD PRN PRN Reason: SALINE FLUSH Valproic Acid (Depakene) 250 mg NG TID [facility] - Past Medical History Past Medical History (Chronic Problems): Chronic Problems Depression (Chronic) Hypertension (Chronic) Stage III chronic kidney disease (Chronic) Alcoholism (Chronic) Acute renal failure (Chronic) Malnutrition of moderate degree (Chronic) - Past Surgical History Surgical History: - - ostomy - Social History Smoking Status: Current every day smoker - Family History Maternal History Items: Unknown, - - unknown, pt unable to provide history Paternal History Items: Unknown Review of Systems Unable to obtain accurate/complete ROS d/t: confused, agitated, combative, uncooperative, yelling out wants to go home Patient Problems: Active and Suspected Problems Metabolic acidosis (Acute) Status post end ileostomy (Acute) Acute on chronic renal failure (Acute) Hyperkalemia (Acute) Ischemia of stoma (Suspected) - Physical Exam General: Confused, Disoriented, Non-Cooperative, - - agitated, combative, tremulous lips, mouth/jaw HEENT: PERRLA, EOMI Oral: Dry Mucosa Neck: Supple Lungs: Clear to auscultation Cardiovascular: No rub noted, Tachycardic Abdomen: Bowel Sounds Present, Soft, Non Tender, - - ostomy with brown liquid stool Extremities: No edema Skin: No rashes, - - tattoo on ankles Musculoskeletal: Cachexia, Muscle Wasting Neurological: - - restless, combative Psych/Mental Status: Agitated, Anxious Vital Signs Temp Pulse Resp BP Pulse Ox 98.0 F 125 H 22 H 123/70 H 90 09/30/17 16:00 09/30/17 21:00 09/30/17 21:00 09/30/17 21:00 09/30/17 16:00 Oxygen Flow Rate (L/min) 3 Oxygen Delivery Method Nasal Cannula Weight: 42.8 kg Body Mass Index (BMI) 17.8 Intake and Output for Last 24 Hours 09/28/17 09/29/17 09/30/17 23:59 23:59 23:59 Intake Total 1891 / 1891 Output Total 1300 / 1300 Balance 591 / 591 Laboratory Tests Past 24 Hrs 09/30/17 09/30/17 09/30/17 14:40 15:00 15:40 PT 14.9 INR 1.2 APTT 26.8 Specimen Type Sample Site pH Bicarbonate Actual POC Total CO2 Base Excess O2 Saturation ABG pCO2 ABG pO2 O2 Delivery Device Liter Flow Blood Gas Notified Whom Blood Gas Notified Time Sodium 137 Potassium 7.8 H* Chloride 112 H Carbon Dioxide 10.0 L Anion Gap 15 BUN 139 H* Creatinine 7.82 H* Estim Creat Clear Calc 4.91 Est GFR (MDRD) Af Amer 7 L Est GFR (MDRD) Non-Af 6 L BUN/Creatinine Ratio 17.8 Glucose 123 H Calcium 7.8 L Ur Random Sodium Urine Creatinine MRSA (PCR) Negative 09/30/17 09/30/17 09/30/17 16:03 18:50 19:53 PT INR APTT Specimen Type ART Sample Site L Brachial pH 7.12 L* Bicarbonate Actual 5.9 L POC Total CO2 6 Base Excess -24 L O2 Saturation 92 L ABG pCO2 18.2 L* ABG pO2 83 O2 Delivery Device Nasal Can Liter Flow 3.0 Blood Gas Notified Whom ICU Blood Gas Notified Time 1602 Sodium 140 Potassium 7.1 H* Chloride 114 H Carbon Dioxide 11.0 L Anion Gap 15 BUN 135 H* Creatinine 7.08 H Estim Creat Clear Calc 5.42 Est GFR (MDRD) Af Amer 8 L Est GFR (MDRD) Non-Af 6 L BUN/Creatinine Ratio 19.1 Glucose 109 H Calcium 7.4 L Ur Random Sodium 56 Urine Creatinine 68.40 MRSA (PCR) Clinical Impression(s) from Imaging Studies Brain CT 09/30/17 10:25 IMPRESSION: Normal unenhanced CT scan of the brain. Electronically Signed: Cosmo Bravo MD at 12:58 EDT Tel [phone], Service support , Chest X-Ray 09/30/17 10:26 IMPRESSION: Hyperinflation. Findings suggesting mild bibasilar atelectasis. Electronically Signed: Cosmo Bravo MD at 13:07 EDT Tel [phone], Service support , Cervical Spine CT 09/30/17 10:27 IMPRESSION: Multilevel degenerative changes, as described above. Multilevel neural foraminal stenosis. Anterior listhesis of C3 on C4. Electronically Signed: Cosmo Bravo MD at 13:03 EDT Tel [phone], Service support , Pelvis X-Ray 09/30/17 10:27 IMPRESSION: No acute abnormality is seen. Electronically Signed: Cosmo Bravo MD at 13:06 EDT Tel [phone], Service support , Assessment/Plan Active and Suspected Problems Metabolic acidosis (Acute) Status post end ileostomy (Acute) Acute on chronic renal failure (Acute) Hyperkalemia (Acute) Ischemia of stoma (Suspected) 1. AMY due to profound dehydration, ATN. continue fluid resuscitation. Check urine sodium, creatine. 2. Metabolic, Uremic encephalopathy with DT's 3 Acute hyperkalemia persistent, unresponsive to medical therapy. correct with dialysis 4. Shock with leukocytosis, cx sent. 5. Severe AG metabolic acidosis refractory to bicarbonate replacement. Correct with urgent dialysis 6. Hx ETOH abuse per pt son 7. s/p colostomy with high ostomy output, increased GI loss. 8. Urgent dialysis tonight. Pt son consent to dialysis and dialysis catheter placement. Seen on dialysis, run even on 2K for 2.5hrs.
--- NOTE | 2017-09-30 22:50 | PCM.OP.BLANK ---
Operative Report Date of Procedure: 09/30/17 Left femoral temp dialysis catheter insertion for hemodialysis. pt placed supine with 4 point restraint due to agitation left femoral site prepped and sterile drapped. 1% lidocaine used for local anesthesia 20cm mahurkar catheter placed using Seldinger technique. Good venous return x2. Guidewire removed. Pt tolerated procedure well.
[2017-10-01] VITALS (36 sets, daily range): BP systolic 64–120; BP diastolic 31–81; PULSE 108–130; RESP 15–31; TEMP 37.4–38.7; O2SAT 93–100
[2017-10-01] MEDS: Heparin Injection (Vial) 5,000 UNIT/ML VIAL 5000 UNIT SC ×2 (01:46→16:24)
[2017-10-01] MEDS: FLUoxetine 20 MG Capsule 40 MG NG ×2 (01:48→12:13)
[2017-10-01] MEDS: Mirtazapine 15 MG Tablet NG (01:49)
[2017-10-01] MEDS: Heparin 10,000 UNITS/10 ML Vial IV (01:50)
--- NOTE | 2017-10-01 03:34 | DIALYSIS ---
01:30-HD x 2.5 hours complete. Tolerated tx well. Ran on 2k bath. Positive 700ml post tx. Used left femoral catheter. No pull from arterial port. Lines reversed during tx. Catheter closed with heparin per fill volume. See tx sheet for more details. Report was given to DAVID López.
[2017-10-01 05:17] LABS: Hematocrit 42.3 % (37-47); Hemoglobin 14.4 g/dl (12.0-15.0); Mean Corpuscular Hgb 34.1 pg (27.0-32.0); Mean Corpuscular Volume 100.2 fL (81-99); Mean Platelet Vol. 9.4 fl (6.2-12.0); Platelet Count 198 K/mm3 (150-450); RBC Distribution Width CV 15.1 % (11.6-14.6); RBC Distribution Width SD 54.6 fl (35.1-43.9); Red Blood Count 4.22 M/mm3 (4.2-5.4); White Blood Count 6.4 K/mm3 (4.4-11.0)
[2017-10-01 05:18] LABS: Scan Indicated on CBC? Y/N NO
[2017-10-01 05:25] LABS: AST(SGOT) 46 U/L (15-37); Alanine Aminotransfer ALT/SGPT 38 U/L (13-56); Albumin, Serum 2.9 g/dL (3.2-5.0); Alkaline Phosphatase 124 U/L (45-117); Anion Gap 12 (5-15); BUN 72 mg/dL (7-18); BUN/Creat Ratio 15.9 RATIO (10-20); Bilirubin, Direct 0.12 mg/dL (0.00-0.30); Calcium,Total 7.5 mg/dL (8.5-10.1); Chloride 109 mmol/L (98-107); Creatinine, Serum 4.53 mg/dL (0.55-1.02); EST Glomerular Filtration Rate 10 mL/min (>60); Est Glom Filt Rate - Afr Amer 13 mL/min (>60); Estimated Creatinine Clearance 8.48 ml/min; Globulin 3.5 g/dL (2.2-4.2); Glucose 77 mg/dL (74-106); Potassium 5.3 mmol/L (3.5-5.1); Protein, Total 6.4 g/dL (6.4-8.2); Sodium Level 140 mmol/L (136-145)
[2017-10-01 05:34] LABS: CPK Total, Creatine Kinase 119 U/L (26-192)
[2017-10-01] MEDS: 0.9% Normal Saline 1,000 ML 75 ML IV (05:53)
--- NOTE | 2017-10-01 05:55 | RAD_ITS ---
STUDY: X-RAY CHEST REASON FOR EXAM: Female, 62 years old. Tachypnea TECHNIQUE: Single frontal view of the chest. COMPARISON: 09/30/2017 FINDINGS: Enteric tube tip in the distal stomach. The lungs are clear and expanded. There is no demonstrated pleural abnormality. Normal size heart. Calcified lymph nodes in the left hilum. Normal visualized pulmonary arteries. Normal visualized aortic arch and descending thoracic aorta. Normal visualized thoracic spine. Remote left rib trauma. There is no demonstrated abnormality of the visualized soft tissue structures of the upper abdomen. RAD/Chest 1 View (Portable) IMPRESSION: No acute pulmonary findings. Electronically Signed: Mateo Harrington MD at 6:27 EDT Tel , Service support ,
[2017-10-01] MEDS: CHLORHEXIDINE GLUC 2% CLOTH 1 EACH TOWELETTE TOPICAL (05:58)
[2017-10-01] MEDS: Sodium Polystyrene Sulfonate 15 GM/60 ML UDC 30 GM NG (06:55)
--- NOTE | 2017-10-01 06:58 | PCM.PN.INT ---
Subjective: Patient continues to be confused and unable to provide reliable history. Patient is not reporting any pain, but interactions are limited. Patient did receive emergent hemodialysis overnight. Nursing reports some concern over the appearance of the ostomy. They state that this is become dusky overnight. No significant cardiac arrhythmias have been noted. Patient did not receive Kayexalate yesterday secondary to hemodialysis. An NG was placed to facilitate Kayexalate. She only required 1 as needed dose of Ativan overnight. General: Confused, Disoriented, - - RASS -1. Not cooperative with questioning. Appears much older than stated age and cachectic. HEENT: Atraumatic, PERRLA, EOMI, Normocephalic, - - Temporal wasting noted. Oral: Moist Mucosa, No Gingival or Mucosal Lesions/ Ulcerations Neck: Supple, No JVD, No Nodes, Trachea Midline Lungs: No rhonchi, No wheeze, No rales, Diminished, - - Symmetric expansion. No dullness to percussion. Cardiovascular: Normal S1, Normal S2, No murmurs, No rub noted, No Gallop, Tachycardic Abdomen: Bowel Sounds Present, Soft, Non Tender, Non-Distended, - - Ostomy now appears dusky. Attempted to visualize into the stoma using a test tube and appeared dusky at least 2 cm deep. Extremities: No cyanosis, No edema, Clubbing, Diminished Peripheral Pulses Skin: - - No significant change compared to previous. Groin hemodialysis catheter was noted without significant hematoma Musculoskeletal: No Tenderness to Palpation of Joints or Extremities, Cachexia, Muscle Wasting Lymphatic: No Cervical, Supraclavicular, or Inguinal Adenopathy Neurological: - - Not cooperative with exam. Spontaneous movement of all extremities. Tracks appropriately. Sensation appears intact. Psych/Mental Status: Flat Affect, Impulsive, Restless Vital Signs Temp Pulse Resp BP Pulse Ox 37.7 C H 120 H 27 H 97/61 99 10/01/17 03:00 10/01/17 06:27 10/01/17 06:27 10/01/17 06:27 10/01/17 06:27 Oxygen Flow Rate (L/min) 1 Oxygen Delivery Method Room Air Weight: 42.3 kg Body Mass Index (BMI) 17.8 Intake and Output for Last 24 Hours 04/18/18 04/19/18 04/20/18 23:59 23:59 23:59 Intake Total 1891 / 1891 1149 / 1149 Output Total 1300 / 1300 1500 / 1500 Balance 591 / 591 -351 / -351 Labs (Last 48 Hours) 09/30/17 09/30/17 09/30/17 14:40 15:00 15:40 WBC RBC Hgb Hct MCV MCH MCHC RDW RDW Differential Plt Count MPV PT 14.9 INR 1.2 APTT 26.8 Specimen Type Sample Site pH Bicarbonate Actual POC Total CO2 Base Excess O2 Saturation ABG pCO2 ABG pO2 O2 Delivery Device Liter Flow Blood Gas Notified Whom Blood Gas Notified Time Sodium 137 Potassium 7.8 H* Chloride 112 H Carbon Dioxide 10.0 L Anion Gap 15 BUN 139 H* Creatinine 7.82 H* Estim Creat Clear Calc 4.91 Est GFR (MDRD) Af Amer 7 L Est GFR (MDRD) Non-Af 6 L BUN/Creatinine Ratio 17.8 Glucose 123 H Calcium 7.8 L Total Bilirubin Direct Bilirubin AST ALT Alkaline Phosphatase Total Creatine Kinase Total Protein Albumin Globulin Ur Random Sodium Urine Creatinine MRSA (PCR) Negative 09/30/17 09/30/17 09/30/17 16:03 18:50 19:53 WBC RBC Hgb Hct MCV MCH MCHC RDW RDW Differential Plt Count MPV PT INR APTT Specimen Type ART Sample Site L Brachial pH 7.12 L* Bicarbonate Actual 5.9 L POC Total CO2 6 Base Excess -24 L O2 Saturation 92 L ABG pCO2 18.2 L* ABG pO2 83 O2 Delivery Device Nasal Can Liter Flow 3.0 Blood Gas Notified Whom ICU MD Blood Gas Notified Time 1602 Sodium 140 Potassium 7.1 H* Chloride 114 H Carbon Dioxide 11.0 L Anion Gap 15 BUN 135 H* Creatinine 7.08 H Estim Creat Clear Calc 5.42 Est GFR (MDRD) Af Amer 8 L Est GFR (MDRD) Non-Af 6 L BUN/Creatinine Ratio 19.1 Glucose 109 H Calcium 7.4 L Total Bilirubin Direct Bilirubin AST ALT Alkaline Phosphatase Total Creatine Kinase Total Protein Albumin Globulin Ur Random Sodium 56 Urine Creatinine 68.40 MRSA (PCR) 10/01/17 10/01/17 10/01/17 04:58 04:58 04:58 WBC 6.4 RBC 4.22 Hgb 14.4 Hct 42.3 MCV 100.2 H MCH 34.1 H MCHC 34.0 RDW 15.1 H RDW Differential 54.6 H Plt Count 198 MPV 9.4 PT INR APTT Specimen Type Sample Site pH Bicarbonate Actual POC Total CO2 Base Excess O2 Saturation ABG pCO2 ABG pO2 O2 Delivery Device Liter Flow Blood Gas Notified Whom Blood Gas Notified Time Sodium 140 Potassium 5.3 H Chloride 109 H Carbon Dioxide 19.0 L Anion Gap 12 BUN 72 H Creatinine 4.53 H Estim Creat Clear Calc 8.48 Est GFR (MDRD) Af Amer 13 L Est GFR (MDRD) Non-Af 10 L BUN/Creatinine Ratio 15.9 Glucose 77 Calcium 7.5 L Total Bilirubin 0.30 Direct Bilirubin 0.12 AST 46 H ALT 38 Alkaline Phosphatase 124 H Total Creatine Kinase 119 Total Protein 6.4 Albumin 2.9 L Globulin 3.5 Ur Random Sodium Urine Creatinine MRSA (PCR) Microbiology 10/01/17 03:20 Stool C. difficile DNA Amplification - Final Clinical Impression(s) from Imaging Studies Brain CT 09/30/17 10:25 IMPRESSION: Normal unenhanced CT scan of the brain. Electronically Signed: Cosmo Bravo MD at 12:58 EDT Tel [phone], Service support , Chest X-Ray 09/30/17 10:26 IMPRESSION: Hyperinflation. Findings suggesting mild bibasilar atelectasis. Electronically Signed: Cosmo Bravo MD at 13:07 EDT Tel [phone], Service support , Cervical Spine CT 09/30/17 10:27 IMPRESSION: Multilevel degenerative changes, as described above. Multilevel neural foraminal stenosis. Anterior listhesis of C3 on C4. Electronically Signed: Cosmo Bravo MD at 13:03 EDT Tel [phone], Service support , Pelvis X-Ray 09/30/17 10:27 IMPRESSION: No acute abnormality is seen. Electronically Signed: Cosmo Bravo MD at 13:06 EDT Tel [phone], Service support , KUB X-Ray 09/30/17 19:00 IMPRESSION: 1. NG tube tip overlies the distal stomach. 2. Scattered central areas of small bowel dilatation. Electronically Signed: Pete Toussaint DO at 22:59 EDT , Service support , Chest X-Ray 10/01/17 05:55 IMPRESSION: No acute pulmonary findings. Electronically Signed: Mateo Harrington MD at 6:27 EDT Tel , Service support , Medical Necessity - Tobacco Use Smoking Status: Current every day smoker Assessment/Plan Active and Suspected Problems Alcoholism (Suspected) Acute renal failure (Acute) Hyperkalemia (Acute) RECOMMENDATIONS: 1. Consult surgery 2. Defer to renal for possible hemodialysis today 3. Dose Kayexalate 4. CIWA protocol 5. Continue with delirium protocol 6. ST/PT/OT consults 7. Attempt to get more information from son/verify CODE STATUS IMPRESSIONS: 1. Acute kidney injury on CKD stage III/severe hyperkalemia/metabolic acidosis Unclear etiology at this time. Patient did have hemodialysis overnight with improvement in BUN, creatinine and potassium. Potassium is still relatively high, but bicarbonate is showing acidosis is much improved. Defer to renal on whether repeat hemodialysis is required today. 2. Metabolic encephalopathy Patient with multiple etiologies for metabolic encephalopathy including uremia, alcohol withdrawal, severe hyperkalemia, malnutrition and renal failure. Will attempt to address electrolytes. Continue with delirium protocol. Patient is on benzodiazepines for alcohol withdrawal, but is not having much requirements per CIWA protocol. 3. Probable alcohol withdrawal Reported alcohol history at baseline. Unclear when patient's last drink was. Patient does have some Depakote in her system, but no alcohol. Patient has been placed on CIWA protocol. 4. Found down Patient's CPK is not very elevated at this time. It is unclear if this is secondary to decreased perfusion or low muscle mass. Patient does have a stage I decubitus ulcer on her right hip. 5. Dusky ostomy Concern for bowel ischemia with ostomy turning dusky overnight. Patient's blood pressure has been marginal, but acceptable. Patient has not shown the ability to care for herself at baseline. Will obtain a surgery consult. Unclear patient will need abdominal imaging, but contrast will be difficult given patient's acute renal failure. Defer to surgery and renal. 6. Poor background information/malnutrition/possible psychiatric illness Complicates care, management, recovery and prognosis. Unable to verify baseline medications. Patient has not been on medications for the last 2 months. Would hold all nonnecessary medications. Patient will need a swallow study before any p.o. intake. TIME: 37 minutes critical care time spent addressing patient's acute kidney injury, metabolic encephalopathy, change in ostomy, alcohol withdrawal, review of all data and collaboration with care team. (5:45 AM to 6:30 AM) Code Visit 9xxxx: [id number] Critical care first hour
--- NOTE | 2017-10-01 07:11 | PN_ITS ---
Subjective: Patient continues to be confused and unable to provide reliable history. Patient is not reporting any pain, but interactions are limited. Patient did receive emergent hemodialysis overnight. Nursing reports some concern over the appearance of the ostomy. They state that this is become dusky overnight. No significant cardiac arrhythmias have been noted. Patient did not receive Kayexalate yesterday secondary to hemodialysis. An NG was placed to facilitate Kayexalate. She only required 1 as needed dose of Ativan overnight. General: Confused, Disoriented, - - RASS -1. Not cooperative with questioning. Appears much older than stated age and cachectic. HEENT: Atraumatic, PERRLA, EOMI, Normocephalic, - - Temporal wasting noted. Oral: Moist Mucosa, No Gingival or Mucosal Lesions/ Ulcerations Neck: Supple, No JVD, No Nodes, Trachea Midline Lungs: No rhonchi, No wheeze, No rales, Diminished, - - Symmetric expansion. No dullness to percussion. Cardiovascular: Normal S1, Normal S2, No murmurs, No rub noted, No Gallop, Tachycardic Abdomen: Bowel Sounds Present, Soft, Non Tender, Non-Distended, - - Ostomy now appears dusky. Attempted to visualize into the stoma using a test tube and appeared dusky at least 2 cm deep. Extremities: No cyanosis, No edema, Clubbing, Diminished Peripheral Pulses Skin: - - No significant change compared to previous. Groin hemodialysis catheter was noted without significant hematoma Musculoskeletal: No Tenderness to Palpation of Joints or Extremities, Cachexia, Muscle Wasting Lymphatic: No Cervical, Supraclavicular, or Inguinal Adenopathy Neurological: - - Not cooperative with exam. Spontaneous movement of all extremities. Tracks appropriately. Sensation appears intact. Psych/Mental Status: Flat Affect, Impulsive, Restless Vital Signs Temp Pulse Resp BP Pulse Ox 37.7 C H 120 H 27 H 97/61 99 10/01/17 03:00 10/01/17 06:27 10/01/17 06:27 10/01/17 06:27 10/01/17 06:27 Oxygen Flow Rate (L/min) 1 Oxygen Delivery Method Room Air Weight: 42.3 kg Body Mass Index (BMI) 17.8 Intake and Output for Last 24 Hours 04/18/18 04/19/18 04/20/18 23:59 23:59 23:59 Intake Total 1891 / 1891 1149 / 1149 Output Total 1300 / 1300 1500 / 1500 Balance 591 / 591 -351 / -351 Labs (Last 48 Hours) 09/30/17 09/30/17 09/30/17 14:40 15:00 15:40 WBC RBC Hgb Hct MCV MCH MCHC RDW RDW Differential Plt Count MPV PT 14.9 INR 1.2 APTT 26.8 Specimen Type Sample Site pH Bicarbonate Actual POC Total CO2 Base Excess O2 Saturation ABG pCO2 ABG pO2 O2 Delivery Device Liter Flow Blood Gas Notified Whom Blood Gas Notified Time Sodium 137 Potassium 7.8 H* Chloride 112 H Carbon Dioxide 10.0 L Anion Gap 15 BUN 139 H* Creatinine 7.82 H* Estim Creat Clear Calc 4.91 Est GFR (MDRD) Af Amer 7 L Est GFR (MDRD) Non-Af 6 L BUN/Creatinine Ratio 17.8 Glucose 123 H Calcium 7.8 L Total Bilirubin Direct Bilirubin AST ALT Alkaline Phosphatase Total Creatine Kinase Total Protein Albumin Globulin Ur Random Sodium Urine Creatinine MRSA (PCR) Negative 09/30/17 09/30/17 09/30/17 16:03 18:50 19:53 WBC RBC Hgb Hct MCV MCH MCHC RDW RDW Differential Plt Count MPV PT INR APTT Specimen Type ART Sample Site L Brachial pH 7.12 L* Bicarbonate Actual 5.9 L POC Total CO2 6 Base Excess -24 L O2 Saturation 92 L ABG pCO2 18.2 L* ABG pO2 83 O2 Delivery Device Nasal Can Liter Flow 3.0 Blood Gas Notified Whom ICU MD Blood Gas Notified Time 1602 Sodium 140 Potassium 7.1 H* Chloride 114 H Carbon Dioxide 11.0 L Anion Gap 15 BUN 135 H* Creatinine 7.08 H Estim Creat Clear Calc 5.42 Est GFR (MDRD) Af Amer 8 L Est GFR (MDRD) Non-Af 6 L BUN/Creatinine Ratio 19.1 Glucose 109 H Calcium 7.4 L Total Bilirubin Direct Bilirubin AST ALT Alkaline Phosphatase Total Creatine Kinase Total Protein Albumin Globulin Ur Random Sodium 56 Urine Creatinine 68.40 MRSA (PCR) 10/01/17 10/01/17 10/01/17 04:58 04:58 04:58 WBC 6.4 RBC 4.22 Hgb 14.4 Hct 42.3 MCV 100.2 H MCH 34.1 H MCHC 34.0 RDW 15.1 H RDW Differential 54.6 H Plt Count 198 MPV 9.4 PT INR APTT Specimen Type Sample Site pH Bicarbonate Actual POC Total CO2 Base Excess O2 Saturation ABG pCO2 ABG pO2 O2 Delivery Device Liter Flow Blood Gas Notified Whom Blood Gas Notified Time Sodium 140 Potassium 5.3 H Chloride 109 H Carbon Dioxide 19.0 L Anion Gap 12 BUN 72 H Creatinine 4.53 H Estim Creat Clear Calc 8.48 Est GFR (MDRD) Af Amer 13 L Est GFR (MDRD) Non-Af 10 L BUN/Creatinine Ratio 15.9 Glucose 77 Calcium 7.5 L Total Bilirubin 0.30 Direct Bilirubin 0.12 AST 46 H ALT 38 Alkaline Phosphatase 124 H Total Creatine Kinase 119 Total Protein 6.4 Albumin 2.9 L Globulin 3.5 Ur Random Sodium Urine Creatinine MRSA (PCR) Microbiology 10/01/17 03:20 Stool C. difficile DNA Amplification - Final Clinical Impression(s) from Imaging Studies Brain CT 09/30/17 10:25 IMPRESSION: Normal unenhanced CT scan of the brain. Electronically Signed: Cosmo Bravo MD at 12:58 EDT Tel [phone], Service support , Chest X-Ray 09/30/17 10:26 IMPRESSION: Hyperinflation. Findings suggesting mild bibasilar atelectasis. Electronically Signed: Cosmo Bravo MD at 13:07 EDT Tel [phone], Service support , Cervical Spine CT 09/30/17 10:27 IMPRESSION: Multilevel degenerative changes, as described above. Multilevel neural foraminal stenosis. Anterior listhesis of C3 on C4. Electronically Signed: Cosmo Bravo MD at 13:03 EDT Tel [phone], Service support , Pelvis X-Ray 09/30/17 10:27 IMPRESSION: No acute abnormality is seen. Electronically Signed: Cosmo Bravo MD at 13:06 EDT Tel [phone], Service support , KUB X-Ray 09/30/17 19:00 IMPRESSION: 1. NG tube tip overlies the distal stomach. 2. Scattered central areas of small bowel dilatation. Electronically Signed: Pete Toussaint DO at 22:59 EDT , Service support , Chest X-Ray 10/01/17 05:55 IMPRESSION: No acute pulmonary findings. Electronically Signed: Mateo Harrington MD at 6:27 EDT Tel , Service support , Medical Necessity - Tobacco Use Smoking Status: Current every day smoker Assessment/Plan Active and Suspected Problems Alcoholism (Suspected) Acute renal failure (Acute) Hyperkalemia (Acute) RECOMMENDATIONS: 1. Consult surgery 2. Defer to renal for possible hemodialysis today 3. Dose Kayexalate 4. CIWA protocol 5. Continue with delirium protocol 6. ST/PT/OT consults 7. Attempt to get more information from son/verify CODE STATUS IMPRESSIONS: 1. Acute kidney injury on CKD stage III/severe hyperkalemia/metabolic acidosis Unclear etiology at this time. Patient did have hemodialysis overnight with improvement in BUN, creatinine and potassium. Potassium is still relatively high, but bicarbonate is showing acidosis is much improved. Defer to renal on whether repeat hemodialysis is required today. 2. Metabolic encephalopathy Patient with multiple etiologies for metabolic encephalopathy including uremia, alcohol withdrawal, severe hyperkalemia, malnutrition and renal failure. Will attempt to address electrolytes. Continue with delirium protocol. Patient is on benzodiazepines for alcohol withdrawal, but is not having much requirements per CIWA protocol. 3. Probable alcohol withdrawal Reported alcohol history at baseline. Unclear when patient's last drink was. Patient does have some Depakote in her system, but no alcohol. Patient has been placed on CIWA protocol. 4. Found down Patient's CPK is not very elevated at this time. It is unclear if this is secondary to decreased perfusion or low muscle mass. Patient does have a stage I decubitus ulcer on her right hip. 5. Dusky ostomy Concern for bowel ischemia with ostomy turning dusky overnight. Patient' s blood pressure has been marginal, but acceptable. Patient has not shown the ability to care for herself at baseline. Will obtain a surgery consult. Unclear patient will need abdominal imaging, but contrast will be difficult given patient's acute renal failure. Defer to surgery and renal. 6. Poor background information/malnutrition/possible psychiatric illness Complicates care, management, recovery and prognosis. Unable to verify baseline medications. Patient has not been on medications for the last 2 months. Would hold all nonnecessary medications. Patient will need a swallow study before any p.o. intake. TIME: 37 minutes critical care time spent addressing patient's acute kidney injury , metabolic encephalopathy, change in ostomy, alcohol withdrawal, review of all data and collaboration with care team. (5:45 AM to 6:30 AM) Code Visit 9xxxx: [id number] Critical care first hour
--- NOTE | 2017-10-01 08:10 | CT_ITS ---
STUDY: CT ABDOMEN AND PELVIS WITHOUT CONTRAST REASON FOR EXAM: Female, 62 years old. Possible ischemia of the stoma. Prior colectomy. RADIATION DOSAGE (If Supplied By Facility): CTDIvol = ( 6.04 ) mGy, DLP = ( 271.80 ) mGycm TECHNIQUE: Transaxial images were obtained from the dome of the diaphragm to the symphysis pubis without oral contrast, and without intravenous contrast. Sagittal and coronal images were reconstructed. Individualized dose optimization techniques were used for this CT. COMPARISON: None. FINDINGS: Emphysematous changes seen at the lung bases with mild linear scarring and/or atelectasis. A nasogastric tube is seen. The tip is in the body of the stomach. Normal liver. There are surgical clips in the gallbladder fossa consistent with a prior cholecystectomy. There are multiple benign calcified granulomata of the spleen. Normal pancreas. Normal bilateral adrenal glands. Normal right kidney. Normal left kidney. There is a small hiatal hernia. There is evidence of a slightly dilated small bowel loops in the mid and left lower quadrant. Fluid and fecal material is seen in the colon. Anastomotic site is seen in the mid small bowel loops. There are surgical clips in the region of the appendix consistent with a prior appendectomy. An ostomy is seen in the right lower quadrant. Normal abdominal aorta. Normal inferior vena cava. Normal retroperitoneum. Normal urinary bladder. Fluid is seen in the pelvis. Normal abdominal wall. There are diffuse degenerative changes of the visualized lumbar spine. Levoscoliosis. CT/Abdomen/Pelvis without Cont IMPRESSION: Slightly distended small bowel loops in the mid and left lower quadrants with fluid. Emphysematous changes at the lung bases. Stoma seen in the right lower quadrant. Electronically Signed: Cosmo Bravo MD at 9:32 EDT Tel [phone], Service support ,
--- NOTE | 2017-10-01 08:32 | PCM.PROGNOTE ---
Patient Problems: Active and Suspected Problems Status post end ileostomy (Acute) Acute on chronic renal failure (Acute) Hyperkalemia (Acute) Ischemia of stoma (Suspected) Subjective: Follow-up after admission for acute kidney injury on top of stage III chronic kidney disease, uremic encephalopathy, metabolic acidosis, hyperkalemia and hypovolemic shock. Patient seen and examined. She is restless, anxious, not able to provide any history. She remains confused and disoriented. She received hemodialysis last night. Nursing staff reported that her stoma is turning black. She is tachycardic, blood pressure is low and pulse ox is normal on room air. - Physical Exam General: Alert, Confused, Disoriented, Lethargic, - - Restless. HEENT: Atraumatic, PERRLA, EOMI, Normocephalic Oral: No Gingival or Mucosal Lesions/ Ulcerations, Dry Mucosa Neck: Supple, No JVD, Negative Carotid Bruits, Trachea Midline, Thyroid Normal Size and Texture Lungs: Clear to auscultation, No rhonchi, No wheeze, No rales, Diminished Cardiovascular: Regular rate, Regular Rhythm, Normal S1, Normal S2, PMI Normal, Tachycardic Abdomen: Bowel Sounds Present, Soft, Non Tender, Non-Distended, No Hepato-splenomegaly, - - Colostomy bag in place. Dark discoloration of the stoma. Extremities: No clubbing, No cyanosis, No edema Skin: No rashes, No breakdown Lymphatic: No Cervical, Supraclavicular, or Inguinal Adenopathy Neurological: Cranial nerves II-XII grossly intact, - - Moving all limbs. Psych/Mental Status: Hallucinations, Restless Vital Signs Temp Pulse Resp BP Pulse Ox 100 F H 117 H 24 H 85/53 L 99 10/01/17 03:00 10/01/17 07:13 10/01/17 07:13 10/01/17 07:13 10/01/17 07:13 Oxygen Flow Rate (L/min) 1 Oxygen Delivery Method Room Air Weight: 93 lb 4.089 oz Body Mass Index (BMI) 17.8 Intake and Output for Last 24 Hours 09/29/17 09/30/17 10/01/17 23:59 23:59 23:59 Intake Total 1891 / 1891 1149 / 1149 Output Total 1300 / 1300 1500 / 1500 Balance 591 / 591 -351 / -351 Microbiology Past 72 Hours 10/01/17 03:20 C. difficile DNA Amplification - Final Stool Laboratory Tests Past 24 Hrs 09/30/17 09/30/17 09/30/17 14:40 15:00 15:40 WBC RBC Hgb Hct MCV MCH MCHC RDW RDW Differential Plt Count MPV PT 14.9 INR 1.2 APTT 26.8 Specimen Type Sample Site pH Bicarbonate Actual POC Total CO2 Base Excess O2 Saturation ABG pCO2 ABG pO2 O2 Delivery Device Liter Flow Blood Gas Notified Whom Blood Gas Notified Time Sodium 137 Potassium 7.8 H* Chloride 112 H Carbon Dioxide 10.0 L Anion Gap 15 BUN 139 H* Creatinine 7.82 H* Estim Creat Clear Calc 4.91 Est GFR (MDRD) Af Amer 7 L Est GFR (MDRD) Non-Af 6 L BUN/Creatinine Ratio 17.8 Glucose 123 H Calcium 7.8 L Total Bilirubin Direct Bilirubin AST ALT Alkaline Phosphatase Total Creatine Kinase Total Protein Albumin Globulin Ur Random Sodium Urine Creatinine MRSA (PCR) Negative 09/30/17 09/30/17 09/30/17 16:03 18:50 19:53 WBC RBC Hgb Hct MCV MCH MCHC RDW RDW Differential Plt Count MPV PT INR APTT Specimen Type ART Sample Site L Brachial pH 7.12 L* Bicarbonate Actual 5.9 L POC Total CO2 6 Base Excess -24 L O2 Saturation 92 L ABG pCO2 18.2 L* ABG pO2 83 O2 Delivery Device Nasal Can Liter Flow 3.0 Blood Gas Notified Whom ICU MD Blood Gas Notified Time 1602 Sodium 140 Potassium 7.1 H* Chloride 114 H Carbon Dioxide 11.0 L Anion Gap 15 BUN 135 H* Creatinine 7.08 H Estim Creat Clear Calc 5.42 Est GFR (MDRD) Af Amer 8 L Est GFR (MDRD) Non-Af 6 L BUN/Creatinine Ratio 19.1 Glucose 109 H Calcium 7.4 L Total Bilirubin Direct Bilirubin AST ALT Alkaline Phosphatase Total Creatine Kinase Total Protein Albumin Globulin Ur Random Sodium 56 Urine Creatinine 68.40 MRSA (PCR) 10/01/17 10/01/17 10/01/17 04:58 04:58 04:58 WBC 6.4 RBC 4.22 Hgb 14.4 Hct 42.3 MCV 100.2 H MCH 34.1 H MCHC 34.0 RDW 15.1 H RDW Differential 54.6 H Plt Count 198 MPV 9.4 PT INR APTT Specimen Type Sample Site pH Bicarbonate Actual POC Total CO2 Base Excess O2 Saturation ABG pCO2 ABG pO2 O2 Delivery Device Liter Flow Blood Gas Notified Whom Blood Gas Notified Time Sodium 140 Potassium 5.3 H Chloride 109 H Carbon Dioxide 19.0 L Anion Gap 12 BUN 72 H Creatinine 4.53 H Estim Creat Clear Calc 8.48 Est GFR (MDRD) Af Amer 13 L Est GFR (MDRD) Non-Af 10 L BUN/Creatinine Ratio 15.9 Glucose 77 Calcium 7.5 L Total Bilirubin 0.30 Direct Bilirubin 0.12 AST 46 H ALT 38 Alkaline Phosphatase 124 H Total Creatine Kinase 119 Total Protein 6.4 Albumin 2.9 L Globulin 3.5 Ur Random Sodium Urine Creatinine MRSA (PCR) Clinical Impression(s) from Imaging Studies Clinical Impression(s) from Imaging Studies Brain CT 09/30/17 10:25 IMPRESSION: Normal unenhanced CT scan of the brain. Electronically Signed: Cosmo Bravo MD at 12:58 EDT Tel [phone], Service support , Chest X-Ray 09/30/17 10:26 IMPRESSION: Hyperinflation. Findings suggesting mild bibasilar atelectasis. Electronically Signed: Cosmo Bravo MD at 13:07 EDT Tel [phone], Service support , Cervical Spine CT 09/30/17 10:27 IMPRESSION: Multilevel degenerative changes, as described above. Multilevel neural foraminal stenosis. Anterior listhesis of C3 on C4. Electronically Signed: Cosmo Bravo MD at 13:03 EDT Tel [phone], Service support , Pelvis X-Ray 09/30/17 10:27 IMPRESSION: No acute abnormality is seen. Electronically Signed: Cosmo Bravo MD at 13:06 EDT Tel [phone], Service support , KUB X-Ray 09/30/17 19:00 IMPRESSION: 1. NG tube tip overlies the distal stomach. 2. Scattered central areas of small bowel dilatation. Electronically Signed: Pete Toussaint DO at 22:59 EDT , Service support , Chest X-Ray 10/01/17 05:55 IMPRESSION: No acute pulmonary findings. Electronically Signed: Mateo Harrington MD at 6:27 EDT Tel , Service support , Abdomen/Pelvis CT 10/01/17 08:10 IMPRESSION: Slightly distended small bowel loops in the mid and left lower quadrants with fluid. Emphysematous changes at the lung bases. Stoma seen in the right lower quadrant. Electronically Signed: Cosmo Bravo MD at 9:32 EDT Tel [phone], Service support , Medical Necessity - Tobacco Use Smoking Status: Current every day smoker Tobacco Use: - - Unknown at this time. Assessment/Plan Active and Suspected Problems Status post end ileostomy (Acute) Acute on chronic renal failure (Acute) Hyperkalemia (Acute) Ischemia of stoma (Suspected) This is a 62 years old female patient presented to the emergency room because of fall and difficulty getting up, found to have down on the floor with cold clammy skin and covered and dog feces and she was found to have acute on chronic renal failure with hyperkalemia and metabolic acidosis requiring emergent hemodialysis, also found to have shock probably hypovolemic shock, metabolic acidosis and suspected ischemia of the small bowel stoma. #1 acute kidney injury on top of stage III chronic kidney disease: Status post emergent hemodialysis last night. Baseline creatinine has been around 1.3-1.6. Admission creatinine was 8.47, came down to 4.53 after dialysis. Her anion gap closed, potassium is coming down. She is still tachycardic, blood pressure has been borderline, pulse ox is normal on room air. Nephrology consulted as well as critical care. Plan to continue IV fluids, dialysis as needed. #2 hyperkalemia: Secondary to above in addition being on Aldactone and lisinopril. Potassium was 8.8 and after there is, came down to 5.2 this morning. EKG revealed sinus tachycardia. Plan as above. #3 uremic encephalopathy: Patient still disoriented, confused and restless. Alcohol withdrawal could be contributing to her confusion and restlessness. CT scan brain without acute findings. #4 shock: This is probably hypovolemic shock. Blood pressure has been borderline, still tachycardic. Plan to continue IV fluids, patient may need vasopressors if blood pressure continued to drop. #5 suspected small bowel stoma ischemia: She has a history of total colectomy and end ileostomy around December, for toxic megacolon that was done at [facility]. Her small bowel stoma looked dusky and lu. General surgery consulted and CT scan abdomen done and revealed distended small bowel loops with fluids. General surgery recommended transfer the patient to [facility] where she had her total colectomy and end ileostomy for further treatment and management. #6 suspected alcohol withdrawal: She is on IV Ativan as needed, thiamine, folic acid and CIWA protocol. #7 status post total colectomy and end ileostomy: This was done around December, at [facility]. It was done for toxic megacolon according to the paperwork from the nearest hospital. Plan as above. #8 hypertension: At this time, she is having borderline blood pressure to hypertensive. At home, she has been on lisinopril, HCTZ and Aldactone which are on hold at this time. #9 depression: Continue Seroquel. #10 DVT prophylaxis: Subcu heparin. This note was generated with [employer] software. It may contain incorrect words, spelling, and punctuation that were not noted in checking the note before signing.
--- NOTE | 2017-10-01 08:37 | PN_ITS ---
Patient Problems: Active and Suspected Problems Status post end ileostomy (Acute) Acute on chronic renal failure (Acute) Hyperkalemia (Acute) Ischemia of stoma (Suspected) Subjective: Follow-up after admission for acute kidney injury on top of stage III chronic kidney disease, uremic encephalopathy, metabolic acidosis, hyperkalemia and hypovolemic shock. Patient seen and examined. She is restless, anxious, not able to provide any history. She remains confused and disoriented. She received hemodialysis last night. Nursing staff reported that her stoma is turning black. She is tachycardic, blood pressure is low and pulse ox is normal on room air. - Physical Exam General: Alert, Confused, Disoriented, Lethargic, - - Restless. HEENT: Atraumatic, PERRLA, EOMI, Normocephalic Oral: No Gingival or Mucosal Lesions/ Ulcerations, Dry Mucosa Neck: Supple, No JVD, Negative Carotid Bruits, Trachea Midline, Thyroid Normal Size and Texture Lungs: Clear to auscultation, No rhonchi, No wheeze, No rales, Diminished Cardiovascular: Regular rate, Regular Rhythm, Normal S1, Normal S2, PMI Normal, Tachycardic Abdomen: Bowel Sounds Present, Soft, Non Tender, Non-Distended, No Hepato- splenomegaly, - - Colostomy bag in place. Dark discoloration of the stoma. Extremities: No clubbing, No cyanosis, No edema Skin: No rashes, No breakdown Lymphatic: No Cervical, Supraclavicular, or Inguinal Adenopathy Neurological: Cranial nerves II-XII grossly intact, - - Moving all limbs. Psych/Mental Status: Hallucinations, Restless Vital Signs Temp Pulse Resp BP Pulse Ox 100 F H 117 H 24 H 85/53 L 99 10/01/17 03:00 10/01/17 07:13 10/01/17 07:13 10/01/17 07:13 10/01/17 07:13 Oxygen Flow Rate (L/min) 1 Oxygen Delivery Method Room Air Weight: 93 lb 4.089 oz Body Mass Index (BMI) 17.8 Intake and Output for Last 24 Hours 09/29/17 09/30/17 10/01/17 23:59 23:59 23:59 Intake Total 1891 / 1891 1149 / 1149 Output Total 1300 / 1300 1500 / 1500 Balance 591 / 591 -351 / -351 Microbiology Past 72 Hours 10/01/17 03:20 C. difficile DNA Amplification - Final Stool Laboratory Tests Past 24 Hrs 09/30/17 09/30/17 09/30/17 14:40 15:00 15:40 WBC RBC Hgb Hct MCV MCH MCHC RDW RDW Differential Plt Count MPV PT 14.9 INR 1.2 APTT 26.8 Specimen Type Sample Site pH Bicarbonate Actual POC Total CO2 Base Excess O2 Saturation ABG pCO2 ABG pO2 O2 Delivery Device Liter Flow Blood Gas Notified Whom Blood Gas Notified Time Sodium 137 Potassium 7.8 H* Chloride 112 H Carbon Dioxide 10.0 L Anion Gap 15 BUN 139 H* Creatinine 7.82 H* Estim Creat Clear Calc 4.91 Est GFR (MDRD) Af Amer 7 L Est GFR (MDRD) Non-Af 6 L BUN/Creatinine Ratio 17.8 Glucose 123 H Calcium 7.8 L Total Bilirubin Direct Bilirubin AST ALT Alkaline Phosphatase Total Creatine Kinase Total Protein Albumin Globulin Ur Random Sodium Urine Creatinine MRSA (PCR) Negative 09/30/17 09/30/17 09/30/17 16:03 18:50 19:53 WBC RBC Hgb Hct MCV MCH MCHC RDW RDW Differential Plt Count MPV PT INR APTT Specimen Type ART Sample Site L Brachial pH 7.12 L* Bicarbonate Actual 5.9 L POC Total CO2 6 Base Excess -24 L O2 Saturation 92 L ABG pCO2 18.2 L* ABG pO2 83 O2 Delivery Device Nasal Can Liter Flow 3.0 Blood Gas Notified Whom ICU MD Blood Gas Notified Time 1602 Sodium 140 Potassium 7.1 H* Chloride 114 H Carbon Dioxide 11.0 L Anion Gap 15 BUN 135 H* Creatinine 7.08 H Estim Creat Clear Calc 5.42 Est GFR (MDRD) Af Amer 8 L Est GFR (MDRD) Non-Af 6 L BUN/Creatinine Ratio 19.1 Glucose 109 H Calcium 7.4 L Total Bilirubin Direct Bilirubin AST ALT Alkaline Phosphatase Total Creatine Kinase Total Protein Albumin Globulin Ur Random Sodium 56 Urine Creatinine 68.40 MRSA (PCR) 10/01/17 10/01/17 10/01/17 04:58 04:58 04:58 WBC 6.4 RBC 4.22 Hgb 14.4 Hct 42.3 MCV 100.2 H MCH 34.1 H MCHC 34.0 RDW 15.1 H RDW Differential 54.6 H Plt Count 198 MPV 9.4 PT INR APTT Specimen Type Sample Site pH Bicarbonate Actual POC Total CO2 Base Excess O2 Saturation ABG pCO2 ABG pO2 O2 Delivery Device Liter Flow Blood Gas Notified Whom Blood Gas Notified Time Sodium 140 Potassium 5.3 H Chloride 109 H Carbon Dioxide 19.0 L Anion Gap 12 BUN 72 H Creatinine 4.53 H Estim Creat Clear Calc 8.48 Est GFR (MDRD) Af Amer 13 L Est GFR (MDRD) Non-Af 10 L BUN/Creatinine Ratio 15.9 Glucose 77 Calcium 7.5 L Total Bilirubin 0.30 Direct Bilirubin 0.12 AST 46 H ALT 38 Alkaline Phosphatase 124 H Total Creatine Kinase 119 Total Protein 6.4 Albumin 2.9 L Globulin 3.5 Ur Random Sodium Urine Creatinine MRSA (PCR) Clinical Impression(s) from Imaging Studies Clinical Impression(s) from Imaging Studies Brain CT 09/30/17 10:25 IMPRESSION: Normal unenhanced CT scan of the brain. Electronically Signed: Cosmo Bravo MD at 12:58 EDT Tel [phone], Service support , Chest X-Ray 09/30/17 10:26 IMPRESSION: Hyperinflation. Findings suggesting mild bibasilar atelectasis. Electronically Signed: Cosmo Bravo MD at 13:07 EDT Tel [phone], Service support , Cervical Spine CT 09/30/17 10:27 IMPRESSION: Multilevel degenerative changes, as described above. Multilevel neural foraminal stenosis. Anterior listhesis of C3 on C4. Electronically Signed: Cosmo Bravo MD at 13:03 EDT Tel [phone], Service support , Pelvis X-Ray 09/30/17 10:27 IMPRESSION: No acute abnormality is seen. Electronically Signed: Cosmo Bravo MD at 13:06 EDT Tel [phone], Service support , KUB X-Ray 09/30/17 19:00 IMPRESSION: 1. NG tube tip overlies the distal stomach. 2. Scattered central areas of small bowel dilatation. Electronically Signed: Pete Toussaint DO at 22:59 EDT , Service support , Chest X-Ray 10/01/17 05:55 IMPRESSION: No acute pulmonary findings. Electronically Signed: Mateo Harrington MD at 6:27 EDT Tel , Service support , Abdomen/Pelvis CT 10/01/17 08:10 IMPRESSION: Slightly distended small bowel loops in the mid and left lower quadrants with fluid. Emphysematous changes at the lung bases. Stoma seen in the right lower quadrant. Electronically Signed: Cosmo Bravo MD at 9:32 EDT Tel [phone], Service support , Medical Necessity - Tobacco Use Smoking Status: Current every day smoker Tobacco Use: - - Unknown at this time. Assessment/Plan Active and Suspected Problems Status post end ileostomy (Acute) Acute on chronic renal failure (Acute) Hyperkalemia (Acute) Ischemia of stoma (Suspected) This is a 62 years old female patient presented to the emergency room because of fall and difficulty getting up, found to have down on the floor with cold clammy skin and covered and dog feces and she was found to have acute on chronic renal failure with hyperkalemia and metabolic acidosis requiring emergent hemodialysis, also found to have shock probably hypovolemic shock, metabolic acidosis and suspected ischemia of the small bowel stoma. #1 acute kidney injury on top of stage III chronic kidney disease: Status post emergent hemodialysis last night. Baseline creatinine has been around 1.3-1.6. Admission creatinine was 8.47, came down to 4.53 after dialysis. Her anion gap closed, potassium is coming down. She is still tachycardic, blood pressure has been borderline, pulse ox is normal on room air. Nephrology consulted as well as critical care. Plan to continue IV fluids, dialysis as needed. #2 hyperkalemia: Secondary to above in addition being on Aldactone and lisinopril. Potassium was 8.8 and after there is, came down to 5.2 this morning. EKG revealed sinus tachycardia. Plan as above. #3 uremic encephalopathy: Patient still disoriented, confused and restless. Alcohol withdrawal could be contributing to her confusion and restlessness. CT scan brain without acute findings. #4 shock: This is probably hypovolemic shock. Blood pressure has been borderline, still tachycardic. Plan to continue IV fluids, patient may need vasopressors if blood pressure continued to drop. #5 suspected small bowel stoma ischemia: She has a history of total colectomy and end ileostomy around December, for toxic megacolon that was done at [facility]. Her small bowel stoma looked dusky and lu. General surgery consulted and CT scan abdomen done and revealed distended small bowel loops with fluids. General surgery recommended transfer the patient to [facility] where she had her total colectomy and end ileostomy for further treatment and management. #6 suspected alcohol withdrawal: She is on IV Ativan as needed, thiamine, folic acid and CIWA protocol. #7 status post total colectomy and end ileostomy: This was done around December, at [facility]. It was done for toxic megacolon according to the paperwork from the nearest hospital. Plan as above. #8 hypertension: At this time, she is having borderline blood pressure to hypertensive. At home, she has been on lisinopril, HCTZ and Aldactone which are on hold at this time. #9 depression: Continue Seroquel. #10 DVT prophylaxis: Subcu heparin. This note was generated with [employer] software. It may contain incorrect words, spelling, and punctuation that were not noted in checking the note before signing.
--- NOTE | 2017-10-01 08:39 | PCM.CONS.GEN ---
Problem List (1) Ischemia of stoma Status: Acute Reason for Consult Date of Consultation: 10/01/17 Reason for Consultation: Ischemia of the stoma History of Present Illness: The patient is a 62 year old F who was found down and brought to the emergency room. She was admitted to the ICU for acute renal failure. She had a left groin catheter placed and was dialyzed last night. Since last night she has had several episodes where she has been hypotensive and tachycardic. The stoma was charted as beefy red on admission but overnight has turned dusky and black. The patient is a very poor historian. She is unable to communicate with me. 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 The patient's son does not know where this was done or when. Past Medical History Past Medical History (Chronic Problems): Chronic Problems Malnutrition of moderate degree (Chronic) Allergies No Known Allergies Allergy (Verified 10/21/16 13:39) Home Medications: Ambulatory Orders Medication Instructions Recorded Aspirin [Aspir-Low] 81 mg PO DAILY 10/21/16 Calcium Carbonate/Vitamin D3 1 each PO BID 10/21/16 [Calcium 600 + Vit D Caplet] Ferrous Sulfate 325 mg PO BID 10/21/16 Fluoxetine HCl 40 mg PO BID 10/21/16 Folic Acid 1 mg PO DAILY@0800 10/21/16 Hydrochlorothiazide 12.5 mg PO DAILY 10/21/16 Multivitamins,Ther W-Minerals 1 tablet PO DAILY 10/21/16 [Multivitamin With Minerals] Omeprazole [Prilosec] 20 mg PO DAILY 10/21/16 Oxybutynin [Ditropan] 10 mg PO DAILY 10/21/16 Potassium Chloride [K-Dur] 20 meq PO BID 10/21/16 Pramipexole Di-HCl [Mirapex] 0.25 mg PO DAILY 10/21/16 Quetiapine Fumarate [Seroquel] 25 mg PO DAILY 10/21/16 Quetiapine Fumarate [Seroquel] 400 mg PO DAILY 10/21/16 Sodium Bicarbonate 650 mg PO DAILY 10/21/16 Valproic Acid [Depakene] 250 mg PO TID 10/21/16 Vitamin E 400 units PO TID 05/10/17 Lisinopril [Zestril] 20 mg PO DAILY 09/30/17 Loperamide [Imodium] 2 mg PO BID PRN PRN 09/30/17 Mirtazapine [Remeron] 15 mg PO QHS 09/30/17 Sodium Bicarbonate 1,300 mg PO DAILY 09/30/17 Spironolactone [Aldactone] 25 mg PO DAILY 09/30/17 Surgical History: - - ostomy Smoking Status: Current every day smoker - *Family History Maternal History Items: Unknown, - - unknown, pt unable to provide history Paternal History Items: Unknown Review of Systems Unable to obtain accurate/complete ROS d/t: Patient is unable to provide a review of systems as she is very confused Patient Problems: Active and Suspected Problems Alcoholism (Suspected) Acute renal failure (Acute) Hyperkalemia (Acute) Ischemia of stoma (Acute) - Physical Exam General: Disoriented, Lethargic HEENT: Atraumatic Neck: No JVD Lungs: Normal air movement Cardiovascular: Tachycardic Abdomen: Soft, Non Tender, Non-Distended, - - Stoma appears ischemic and black. There is liquid dark stool in the stoma bag. Skin: No rashes Musculoskeletal: Cachexia Vital Signs Temp Pulse Resp BP Pulse Ox 100 F H 117 H 24 H 85/53 L 99 10/01/17 03:00 10/01/17 07:13 10/01/17 07:13 10/01/17 07:13 10/01/17 07:13 Oxygen Flow Rate (L/min) 1 Oxygen Delivery Method Room Air Weight: 93 lb 4.089 oz Body Mass Index (BMI) 17.8 Intake and Output for Last 24 Hours 09/29/17 09/30/17 10/01/17 23:59 23:59 23:59 Intake Total 1891 / 1891 1149 / 1149 Output Total 1300 / 1300 1500 / 1500 Balance 591 / 591 -351 / -351 Microbiology Past 72 Hours 10/01/17 03:20 C. difficile DNA Amplification - Final Stool Laboratory Tests Past 24 Hrs 09/30/17 09/30/17 09/30/17 14:40 15:00 15:40 WBC RBC Hgb Hct MCV MCH MCHC RDW RDW Differential Plt Count MPV PT 14.9 INR 1.2 APTT 26.8 Specimen Type Sample Site pH Bicarbonate Actual POC Total CO2 Base Excess O2 Saturation ABG pCO2 ABG pO2 O2 Delivery Device Liter Flow Blood Gas Notified Whom Blood Gas Notified Time Sodium 137 Potassium 7.8 H* Chloride 112 H Carbon Dioxide 10.0 L Anion Gap 15 BUN 139 H* Creatinine 7.82 H* Estim Creat Clear Calc 4.91 Est GFR (MDRD) Af Amer 7 L Est GFR (MDRD) Non-Af 6 L BUN/Creatinine Ratio 17.8 Glucose 123 H Calcium 7.8 L Total Bilirubin Direct Bilirubin AST ALT Alkaline Phosphatase Total Creatine Kinase Total Protein Albumin Globulin Ur Random Sodium Urine Creatinine MRSA (PCR) Negative 09/30/17 09/30/17 09/30/17 16:03 18:50 19:53 WBC RBC Hgb Hct MCV MCH MCHC RDW RDW Differential Plt Count MPV PT INR APTT Specimen Type ART Sample Site L Brachial pH 7.12 L* Bicarbonate Actual 5.9 L POC Total CO2 6 Base Excess -24 L O2 Saturation 92 L ABG pCO2 18.2 L* ABG pO2 83 O2 Delivery Device Nasal Can Liter Flow 3.0 Blood Gas Notified Whom ICU MD Blood Gas Notified Time 1602 Sodium 140 Potassium 7.1 H* Chloride 114 H Carbon Dioxide 11.0 L Anion Gap 15 BUN 135 H* Creatinine 7.08 H Estim Creat Clear Calc 5.42 Est GFR (MDRD) Af Amer 8 L Est GFR (MDRD) Non-Af 6 L BUN/Creatinine Ratio 19.1 Glucose 109 H Calcium 7.4 L Total Bilirubin Direct Bilirubin AST ALT Alkaline Phosphatase Total Creatine Kinase Total Protein Albumin Globulin Ur Random Sodium 56 Urine Creatinine 68.40 MRSA (PCR) 10/01/17 10/01/17 10/01/17 04:58 04:58 04:58 WBC 6.4 RBC 4.22 Hgb 14.4 Hct 42.3 MCV 100.2 H MCH 34.1 H MCHC 34.0 RDW 15.1 H RDW Differential 54.6 H Plt Count 198 MPV 9.4 PT INR APTT Specimen Type Sample Site pH Bicarbonate Actual POC Total CO2 Base Excess O2 Saturation ABG pCO2 ABG pO2 O2 Delivery Device Liter Flow Blood Gas Notified Whom Blood Gas Notified Time Sodium 140 Potassium 5.3 H Chloride 109 H Carbon Dioxide 19.0 L Anion Gap 12 BUN 72 H Creatinine 4.53 H Estim Creat Clear Calc 8.48 Est GFR (MDRD) Af Amer 13 L Est GFR (MDRD) Non-Af 10 L BUN/Creatinine Ratio 15.9 Glucose 77 Calcium 7.5 L Total Bilirubin 0.30 Direct Bilirubin 0.12 AST 46 H ALT 38 Alkaline Phosphatase 124 H Total Creatine Kinase 119 Total Protein 6.4 Albumin 2.9 L Globulin 3.5 Ur Random Sodium Urine Creatinine MRSA (PCR) Clinical Impression(s) from Imaging Studies Brain CT 09/30/17 10:25 IMPRESSION: Normal unenhanced CT scan of the brain. Electronically Signed: Cosmo Bravo MD at 12:58 EDT Tel [phone], Service support , Chest X-Ray 09/30/17 10:26 IMPRESSION: Hyperinflation. Findings suggesting mild bibasilar atelectasis. Electronically Signed: Cosmo Bravo MD at 13:07 EDT Tel [phone], Service support , Cervical Spine CT 09/30/17 10:27 IMPRESSION: Multilevel degenerative changes, as described above. Multilevel neural foraminal stenosis. Anterior listhesis of C3 on C4. Electronically Signed: Cosmo Bravo MD at 13:03 EDT Tel [phone], Service support , Pelvis X-Ray 09/30/17 10:27 IMPRESSION: No acute abnormality is seen. Electronically Signed: Cosmo Bravo MD at 13:06 EDT Tel [phone], Service support , KUB X-Ray 09/30/17 19:00 IMPRESSION: 1. NG tube tip overlies the distal stomach. 2. Scattered central areas of small bowel dilatation. Electronically Signed: Pete Toussaint DO at 22:59 EDT , Service support , Chest X-Ray 10/01/17 05:55 IMPRESSION: No acute pulmonary findings. Electronically Signed: Mateo Harrington MD at 6:27 EDT Tel , Service support , Assessment/Plan Active and Suspected Problems Alcoholism (Suspected) Acute renal failure (Acute) Hyperkalemia (Acute) Ischemia of stoma (Acute) 62-year-old female with ischemia of her bowel 1. Due to the patient's inability to provide me any history and the patient's son not knowing any of her medical history I am unsure as to her surgical history. She has a stoma of some sort likely colostomy. 2. The patient received hemodialysis yesterday evening. There have been several checks which show that she is hypotensive with her blood pressure in the 80s and she is currently tachycardic with a heart rate of 120. It is possible that she has transient ischemia of the bowel versus embolus. I recommend starting with a CT scan of the abdomen without contrast to see the extent of abdominal abnormalities. 3. I discussed the case with the patient's son who will be making her medical decisions as she is temporarily incapacitated. He believes that it would be her will to do any treatment necessary. I explained that I may perform a colonoscopy through the stoma to see the extent of ischemia. After that I will call him and explained his options. I explained that she may continue to worsen as if she does have bowel she will become more septic. I also explained that she may need to be transferred to tertiary care center depending on the outcome of the CT and the colonoscopy. She is kept her she may need a laparotomy and bowel resection. Also discussed the possibility that the entire bowel may be optimized and in that case there would be nothing I could do for her and I would recommend hospice care. Eduardo Lai MD Pager: [facility] [address], [facility] [address] [place] [address] Office:
--- NOTE | 2017-10-01 08:45 | CON.PCM_ITS ---
Problem List (1) Ischemia of stoma Status: Acute Reason for Consult Date of Consultation: 10/01/17 Reason for Consultation: Ischemia of the stoma History of Present Illness: The patient is a 62 year old F who was found down and brought to the emergency room. She was admitted to the ICU for acute renal failure. She had a left groin catheter placed and was dialyzed last night. Since last night she has had several episodes where she has been hypotensive and tachycardic. The stoma was charted as beefy red on admission but overnight has turned dusky and black. The patient is a very poor historian. She is unable to communicate with me. 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 The patient's son does not know where this was done or when. Past Medical History Past Medical History (Chronic Problems): Chronic Problems Malnutrition of moderate degree (Chronic) Allergies No Known Allergies Allergy (Verified 10/21/16 13:39) Home Medications: Ambulatory Orders Medication Instructions Recorded Aspirin [Aspir-Low] 81 mg PO DAILY 10/21/16 Calcium Carbonate/Vitamin D3 1 each PO BID 10/21/16 [Calcium 600 + Vit D Caplet] Ferrous Sulfate 325 mg PO BID 10/21/16 Fluoxetine HCl 40 mg PO BID 10/21/16 Folic Acid 1 mg PO DAILY@0800 10/21/16 Hydrochlorothiazide 12.5 mg PO DAILY 10/21/16 Multivitamins,Ther W-Minerals 1 tablet PO DAILY 10/21/16 [Multivitamin With Minerals] Omeprazole [Prilosec] 20 mg PO DAILY 10/21/16 Oxybutynin [Ditropan] 10 mg PO DAILY 10/21/16 Potassium Chloride [K-Dur] 20 meq PO BID 10/21/16 Pramipexole Di-HCl [Mirapex] 0.25 mg PO DAILY 10/21/16 Quetiapine Fumarate [Seroquel] 25 mg PO DAILY 10/21/16 Quetiapine Fumarate [Seroquel] 400 mg PO DAILY 10/21/16 Sodium Bicarbonate 650 mg PO DAILY 10/21/16 Valproic Acid [Depakene] 250 mg PO TID 10/21/16 Vitamin E 400 units PO TID 05/10/17 Lisinopril [Zestril] 20 mg PO DAILY 09/30/17 Loperamide [Imodium] 2 mg PO BID PRN PRN 09/30/17 Mirtazapine [Remeron] 15 mg PO QHS 09/30/17 Sodium Bicarbonate 1,300 mg PO DAILY 09/30/17 Spironolactone [Aldactone] 25 mg PO DAILY 09/30/17 Surgical History: - - ostomy Smoking Status: Current every day smoker - *Family History Maternal History Items: Unknown, - - unknown, pt unable to provide history Paternal History Items: Unknown Review of Systems Unable to obtain accurate/complete ROS d/t: Patient is unable to provide a review of systems as she is very confused Patient Problems: Active and Suspected Problems Alcoholism (Suspected) Acute renal failure (Acute) Hyperkalemia (Acute) Ischemia of stoma (Acute) - Physical Exam General: Disoriented, Lethargic HEENT: Atraumatic Neck: No JVD Lungs: Normal air movement Cardiovascular: Tachycardic Abdomen: Soft, Non Tender, Non-Distended, - - Stoma appears ischemic and black. There is liquid dark stool in the stoma bag. Skin: No rashes Musculoskeletal: Cachexia Vital Signs Temp Pulse Resp BP Pulse Ox 100 F H 117 H 24 H 85/53 L 99 10/01/17 03:00 10/01/17 07:13 10/01/17 07:13 10/01/17 07:13 10/01/17 07:13 Oxygen Flow Rate (L/min) 1 Oxygen Delivery Method Room Air Weight: 93 lb 4.089 oz Body Mass Index (BMI) 17.8 Intake and Output for Last 24 Hours 09/29/17 09/30/17 10/01/17 23:59 23:59 23:59 Intake Total 1891 / 1891 1149 / 1149 Output Total 1300 / 1300 1500 / 1500 Balance 591 / 591 -351 / -351 Microbiology Past 72 Hours 10/01/17 03:20 C. difficile DNA Amplification - Final Stool Laboratory Tests Past 24 Hrs 09/30/17 09/30/17 09/30/17 14:40 15:00 15:40 WBC RBC Hgb Hct MCV MCH MCHC RDW RDW Differential Plt Count MPV PT 14.9 INR 1.2 APTT 26.8 Specimen Type Sample Site pH Bicarbonate Actual POC Total CO2 Base Excess O2 Saturation ABG pCO2 ABG pO2 O2 Delivery Device Liter Flow Blood Gas Notified Whom Blood Gas Notified Time Sodium 137 Potassium 7.8 H* Chloride 112 H Carbon Dioxide 10.0 L Anion Gap 15 BUN 139 H* Creatinine 7.82 H* Estim Creat Clear Calc 4.91 Est GFR (MDRD) Af Amer 7 L Est GFR (MDRD) Non-Af 6 L BUN/Creatinine Ratio 17.8 Glucose 123 H Calcium 7.8 L Total Bilirubin Direct Bilirubin AST ALT Alkaline Phosphatase Total Creatine Kinase Total Protein Albumin Globulin Ur Random Sodium Urine Creatinine MRSA (PCR) Negative 09/30/17 09/30/17 09/30/17 16:03 18:50 19:53 WBC RBC Hgb Hct MCV MCH MCHC RDW RDW Differential Plt Count MPV PT INR APTT Specimen Type ART Sample Site L Brachial pH 7.12 L* Bicarbonate Actual 5.9 L POC Total CO2 6 Base Excess -24 L O2 Saturation 92 L ABG pCO2 18.2 L* ABG pO2 83 O2 Delivery Device Nasal Can Liter Flow 3.0 Blood Gas Notified Whom ICU MD Blood Gas Notified Time 1602 Sodium 140 Potassium 7.1 H* Chloride 114 H Carbon Dioxide 11.0 L Anion Gap 15 BUN 135 H* Creatinine 7.08 H Estim Creat Clear Calc 5.42 Est GFR (MDRD) Af Amer 8 L Est GFR (MDRD) Non-Af 6 L BUN/Creatinine Ratio 19.1 Glucose 109 H Calcium 7.4 L Total Bilirubin Direct Bilirubin AST ALT Alkaline Phosphatase Total Creatine Kinase Total Protein Albumin Globulin Ur Random Sodium 56 Urine Creatinine 68.40 MRSA (PCR) 10/01/17 10/01/17 10/01/17 04:58 04:58 04:58 WBC 6.4 RBC 4.22 Hgb 14.4 Hct 42.3 MCV 100.2 H MCH 34.1 H MCHC 34.0 RDW 15.1 H RDW Differential 54.6 H Plt Count 198 MPV 9.4 PT INR APTT Specimen Type Sample Site pH Bicarbonate Actual POC Total CO2 Base Excess O2 Saturation ABG pCO2 ABG pO2 O2 Delivery Device Liter Flow Blood Gas Notified Whom Blood Gas Notified Time Sodium 140 Potassium 5.3 H Chloride 109 H Carbon Dioxide 19.0 L Anion Gap 12 BUN 72 H Creatinine 4.53 H Estim Creat Clear Calc 8.48 Est GFR (MDRD) Af Amer 13 L Est GFR (MDRD) Non-Af 10 L BUN/Creatinine Ratio 15.9 Glucose 77 Calcium 7.5 L Total Bilirubin 0.30 Direct Bilirubin 0.12 AST 46 H ALT 38 Alkaline Phosphatase 124 H Total Creatine Kinase 119 Total Protein 6.4 Albumin 2.9 L Globulin 3.5 Ur Random Sodium Urine Creatinine MRSA (PCR) Clinical Impression(s) from Imaging Studies Brain CT 09/30/17 10:25 IMPRESSION: Normal unenhanced CT scan of the brain. Electronically Signed: Cosmo Bravo MD at 12:58 EDT Tel [phone], Service support , Chest X-Ray 09/30/17 10:26 IMPRESSION: Hyperinflation. Findings suggesting mild bibasilar atelectasis. Electronically Signed: Cosmo Bravo MD at 13:07 EDT Tel [phone], Service support , Cervical Spine CT 09/30/17 10:27 IMPRESSION: Multilevel degenerative changes, as described above. Multilevel neural foraminal stenosis. Anterior listhesis of C3 on C4. Electronically Signed: Cosmo Bravo MD at 13:03 EDT Tel [phone], Service support , Pelvis X-Ray 09/30/17 10:27 IMPRESSION: No acute abnormality is seen. Electronically Signed: Cosmo Bravo MD at 13:06 EDT Tel [phone], Service support , KUB X-Ray 09/30/17 19:00 IMPRESSION: 1. NG tube tip overlies the distal stomach. 2. Scattered central areas of small bowel dilatation. Electronically Signed: Pete Toussaint DO at 22:59 EDT , Service support , Chest X-Ray 10/01/17 05:55 IMPRESSION: No acute pulmonary findings. Electronically Signed: Mateo Harrington MD at 6:27 EDT Tel , Service support , Assessment/Plan Active and Suspected Problems Alcoholism (Suspected) Acute renal failure (Acute) Hyperkalemia (Acute) Ischemia of stoma (Acute) 62-year-old female with ischemia of her bowel 1. Due to the patient's inability to provide me any history and the patient's son not knowing any of her medical history I am unsure as to her surgical history. She has a stoma of some sort likely colostomy. 2. The patient received hemodialysis yesterday evening. There have been several checks which show that she is hypotensive with her blood pressure in the 80s and she is currently tachycardic with a heart rate of 120. It is possible that she has transient ischemia of the bowel versus embolus. I recommend starting with a CT scan of the abdomen without contrast to see the extent of abdominal abnormalities. 3. I discussed the case with the patient's son who will be making her medical decisions as she is temporarily incapacitated. He believes that it would be her will to do any treatment necessary. I explained that I may perform a colonoscopy through the stoma to see the extent of ischemia. After that I will call him and explained his options. I explained that she may continue to worsen as if she does have bowel she will become more septic. I also explained that she may need to be transferred to tertiary care center depending on the outcome of the CT and the colonoscopy. She is kept her she may need a laparotomy and bowel resection. Also discussed the possibility that the entire bowel may be optimized and in that case there would be nothing I could do for her and I would recommend hospice care. Eduardo Lai MD Pager: [facility] [address], [facility] [address] [place] [address] Office:
--- NOTE | 2017-10-01 09:33 | CASEMGMT ---
SW participated in ICU rounds this morning. Pt may be transferred. SW called our financial dept and Stephanie was able to pull up in the Medicare system that pt has [employer] PPO. SW called [employer], pt's ID# is [id number], confirmed pt has [employer] PPO as of 06/14/17. SW called Stephanie in our financial dept back and gave her the [employer] number. NAT De, CLINICAL DOCUMENTATION DEVELOPER
[2017-10-01] MEDS: 0.9% Normal Saline 1,000 ML 999 ML IV ×4 (11:05→20:08)
[2017-10-01] MEDS: Aspirin 81 MG TAB.CHEW NG (12:11)
[2017-10-01] MEDS: Pramipexole Di-HCl 0.25 MG Tablet NG (12:12)
[2017-10-01] MEDS: QUEtiapine 25 MG Tablet NG (12:13)
--- NOTE | 2017-10-01 12:27 | PN.RENAL_ITS ---
Patient Problems: Active and Suspected Problems Metabolic acidosis (Acute) Status post end ileostomy (Acute) Acute on chronic renal failure (Acute) Hyperkalemia (Acute) Ischemia of stoma (Suspected) Subjective: Remains agitated, restless. Hypotensive requiring fluid bolus resuscitation this morning. Urinary output poor. Severe metabolic acidosis and hyperkalemia improved with urgent dialysis last night. Patient tolerated well. Will need another dialysis treatment today depending on availability of bed at [facility]. Arrangements made to transfer patient to for management of necrotic stoma. Touched base with patient's son this morning to discuss patient care and status of kidney function - Physical Exam General: Confused, - - Agitated, restless HEENT: PERRLA, EOMI Oral: Dry Mucosa Neck: No JVD Lungs: Clear to auscultation Cardiovascular: Tachycardic Abdomen: Bowel Sounds Present, Soft, Non Tender, Non-Distended, - - Stoma with greenish liquid Extremities: No clubbing, No cyanosis, No edema Skin: No rashes Musculoskeletal: Cachexia, Muscle Wasting Neurological: - - Thrashing in bed Psych/Mental Status: Agitated, Irrational Behavior, Restless Vital Signs Temp Pulse Resp BP Pulse Ox 100 F H 117 H 24 H 85/53 L 99 10/01/17 03:00 10/01/17 07:13 10/01/17 07:13 10/01/17 07:13 10/01/17 07:13 Oxygen Flow Rate (L/min) 1 Oxygen Delivery Method Room Air Weight: 42.3 kg Body Mass Index (BMI) 17.8 Intake and Output for Last 24 Hours 09/29/17 09/30/17 10/01/17 23:59 23:59 23:59 Intake Total 1891 / 1891 1149 / 1149 Output Total 1300 / 1300 1500 / 1500 Balance 591 / 591 -351 / -351 Microbiology Past 72 Hours 10/01/17 03:20 C. difficile DNA Amplification - Final Stool Laboratory Tests Past 24 Hrs 09/30/17 09/30/17 09/30/17 14:40 15:00 15:40 WBC RBC Hgb Hct MCV MCH MCHC RDW RDW Differential Plt Count MPV PT 14.9 INR 1.2 APTT 26.8 Specimen Type Sample Site pH Bicarbonate Actual POC Total CO2 Base Excess O2 Saturation ABG pCO2 ABG pO2 O2 Delivery Device Liter Flow Blood Gas Notified Whom Blood Gas Notified Time Sodium 137 Potassium 7.8 H* Chloride 112 H Carbon Dioxide 10.0 L Anion Gap 15 BUN 139 H* Creatinine 7.82 H* Estim Creat Clear Calc 4.91 Est GFR (MDRD) Af Amer 7 L Est GFR (MDRD) Non-Af 6 L BUN/Creatinine Ratio 17.8 Glucose 123 H Lactic Acid Calcium 7.8 L Total Bilirubin Direct Bilirubin AST ALT Alkaline Phosphatase Total Creatine Kinase Total Protein Albumin Globulin Ur Random Sodium Urine Creatinine MRSA (PCR) Negative 09/30/17 09/30/17 09/30/17 16:03 18:50 19:53 WBC RBC Hgb Hct MCV MCH MCHC RDW RDW Differential Plt Count MPV PT INR APTT Specimen Type ART Sample Site L Brachial pH 7.12 L* Bicarbonate Actual 5.9 L POC Total CO2 6 Base Excess -24 L O2 Saturation 92 L ABG pCO2 18.2 L* ABG pO2 83 O2 Delivery Device Nasal Can Liter Flow 3.0 Blood Gas Notified Whom ICU MD Blood Gas Notified Time 1602 Sodium 140 Potassium 7.1 H* Chloride 114 H Carbon Dioxide 11.0 L Anion Gap 15 BUN 135 H* Creatinine 7.08 H Estim Creat Clear Calc 5.42 Est GFR (MDRD) Af Amer 8 L Est GFR (MDRD) Non-Af 6 L BUN/Creatinine Ratio 19.1 Glucose 109 H Lactic Acid Calcium 7.4 L Total Bilirubin Direct Bilirubin AST ALT Alkaline Phosphatase Total Creatine Kinase Total Protein Albumin Globulin Ur Random Sodium 56 Urine Creatinine 68.40 MRSA (PCR) 10/01/17 10/01/17 10/01/17 04:58 04:58 04:58 WBC 6.4 RBC 4.22 Hgb 14.4 Hct 42.3 MCV 100.2 H MCH 34.1 H MCHC 34.0 RDW 15.1 H RDW Differential 54.6 H Plt Count 198 MPV 9.4 PT INR APTT Specimen Type Sample Site pH Bicarbonate Actual POC Total CO2 Base Excess O2 Saturation ABG pCO2 ABG pO2 O2 Delivery Device Liter Flow Blood Gas Notified Whom Blood Gas Notified Time Sodium 140 Potassium 5.3 H Chloride 109 H Carbon Dioxide 19.0 L Anion Gap 12 BUN 72 H Creatinine 4.53 H Estim Creat Clear Calc 8.48 Est GFR (MDRD) Af Amer 13 L Est GFR (MDRD) Non-Af 10 L BUN/Creatinine Ratio 15.9 Glucose 77 Lactic Acid Calcium 7.5 L Total Bilirubin 0.30 Direct Bilirubin 0.12 AST 46 H ALT 38 Alkaline Phosphatase 124 H Total Creatine Kinase 119 Total Protein 6.4 Albumin 2.9 L Globulin 3.5 Ur Random Sodium Urine Creatinine MRSA (PCR) 10/01/17 10:40 WBC RBC Hgb Hct MCV MCH MCHC RDW RDW Differential Plt Count MPV PT INR APTT Specimen Type Sample Site pH Bicarbonate Actual POC Total CO2 Base Excess O2 Saturation ABG pCO2 ABG pO2 O2 Delivery Device Liter Flow Blood Gas Notified Whom Blood Gas Notified Time Sodium Potassium Chloride Carbon Dioxide Anion Gap BUN Creatinine Estim Creat Clear Calc Est GFR (MDRD) Af Amer Est GFR (MDRD) Non-Af BUN/Creatinine Ratio Glucose Lactic Acid Cancelled Calcium Total Bilirubin Direct Bilirubin AST ALT Alkaline Phosphatase Total Creatine Kinase Total Protein Albumin Globulin Ur Random Sodium Urine Creatinine MRSA (PCR) Medical Necessity - Tobacco Use Smoking Status: Current every day smoker Tobacco Use: - - Unknown at this time. Assessment/Plan Active and Suspected Problems Metabolic acidosis (Acute) Status post end ileostomy (Acute) Acute on chronic renal failure (Acute) Hyperkalemia (Acute) Ischemia of stoma (Suspected) 1. AMY due to profound dehydration, ATN. continue fluid resuscitation. Urine output poor. Plan to dialyze today for continued acidosis and hyperkalemia. 2. Metabolic encephalopathy with DT's 3 Acute hyperkalemia improved with hemodialysis. 4. Shock with leukocytosis, cx pending. 5. Severe AG metabolic acidosis refractory to bicarbonate replacement. Improved with urgent dialysis last night 6. Hx ETOH abuse per pt son 7. s/p colostomy with high ostomy output, increased GI loss. General surgery consulted for necrotic stoma scheduled for transferred to the [facility]. Discussed with pt son regarding renal status
--- NOTE | 2017-10-01 12:28 | NURSING ---
stoma photo: medial view right lower abdomen
--- NOTE | 2017-10-01 12:29 | NURSING ---
stoma photo: anterolateral view right lower abdomen
--- NOTE | 2017-10-01 12:31 | NURSING ---
Was consulted to assess stoma to the right lower abdomen. Stoma is located in the right lower quadrant and the output is very watery. Most likely an ileostomy, but do not have the surgical history and patient is unable to give history at this time. Removed ostomy appliance. Stoma is ischemic at the end with some pinking medially. patient has had a large amount of output according to the nursing staff. peristomal skin is intact. cleansed with soap and water and patted dry. applied a new flat 2 piece [place] appliance with a small amount of stoma paste. stoma measures approx 1 1/4. Pt very restless and belligerent during appliance change.
[2017-10-01] MEDS: Haloperidol Lactate 5 MG/ML Vial 3 MG IV (13:11)
--- NOTE | 2017-10-01 13:22 | CASEMGMT ---
Pt is getting transferred to [facility]. SW called Kimberlyn at [facility] and left her a message letting her know pt is getting transferred. NAT De, [employer]
--- NOTE | 2017-10-01 15:42 | DS.PCM_ITS ---
Discharge Date and Diagnosis - Problem List Patient Problems: Active and Suspected Problems Metabolic acidosis (Acute) Status post end ileostomy (Acute) Acute on chronic renal failure (Acute) Date of Admission: 09/30/17 Date of Discharge: 10/01/17 - Primary Discharge Diagnosis Active and Suspected Problems #1 acute kidney injury on top of stage III chronic kidney disease. #2 hyperkalemia. #3 uremic encephalopathy. #4 probable hypovolemic shock. #5 suspected small bowel stoma ischemia. #6 alcohol withdrawal. - Secondary Discharge Diagnosis Chronic Problems Depression (Chronic) Hypertension (Chronic) Stage III chronic kidney disease (Chronic) Alcoholism (Chronic) Acute renal failure (Chronic) Malnutrition of moderate degree (Chronic) Hospital Course and Treatment Imaging Results: 10/01/17 08:10 CT Abd [Abdomen/Pelvis without Cont] [CT] Stat Clinical Impression(s) from Imaging Studies Brain CT 09/30/17 10:25 IMPRESSION: Normal unenhanced CT scan of the brain. Electronically Signed: Cosmo Bravo MD at 12:58 EDT Tel [phone], Service support , Chest X-Ray 09/30/17 10:26 IMPRESSION: Hyperinflation. Findings suggesting mild bibasilar atelectasis. Electronically Signed: Cosmo Bravo MD at 13:07 EDT Tel [phone], Service support , Cervical Spine CT 09/30/17 10:27 IMPRESSION: Multilevel degenerative changes, as described above. Multilevel neural foraminal stenosis. Anterior listhesis of C3 on C4. Electronically Signed: Cosmo Bravo MD at 13:03 EDT Tel [phone], Service support , Pelvis X-Ray 09/30/17 10:27 IMPRESSION: No acute abnormality is seen. Electronically Signed: Cosmo Bravo MD at 13:06 EDT Tel [phone], Service support , KUB X-Ray 09/30/17 19:00 IMPRESSION: 1. NG tube tip overlies the distal stomach. 2. Scattered central areas of small bowel dilatation. Electronically Signed: Pete Toussaint DO at 22:59 EDT , Service support , Chest X-Ray 10/01/17 05:55 IMPRESSION: No acute pulmonary findings. Electronically Signed: Mateo Harrington MD at 6:27 EDT Tel , Service support , Abdomen/Pelvis CT 10/01/17 08:10 IMPRESSION: Slightly distended small bowel loops in the mid and left lower quadrants with fluid. Emphysematous changes at the lung bases. Stoma seen in the right lower quadrant. Electronically Signed: Cosmo Bravo MD at 9:32 EDT Tel [phone], Service support , Consultations 09/30/17 15:28 Consult: Onc/Wound/team supervisor Routine Comment: Reason for Consult:: colostomy Dr. Ford, critical care. Dr. perez, general surgery. Operations: None Procedures: Dialysis Summary of Care Provided: The patient is a 62 year old F presented to the emergency department because of fall, difficulty getting up and she was found down on the floor with cool clammy skin and was diagnosed with acute on chronic renal failure with hyperkalemia and severe metabolic acidosis requiring emergent hemodialysis, also found to have probable hypovolemic shock and suspected small bowel stoma ischemia. This patient had a history of total colectomy and end ileostomy that was done around December, for toxic megacolon at the [facility] and she has been having multiple recurrent admissions for complications and issues with the ileostomy at the [facility]. Also, she has been on HCTZ, lisinopril and Aldactone for hypertension. On admission, patient was encephalopathic, restless in addition to highly elevated BUN and creatinine in the hyperkalemia and emergent dialysis indicated. Nephrology consulted, she had femoral line inserted and she underwent emergent hemodialysis. She was treated with aggressive IV fluid therapy as well. On admission, her ABG revealed pH of 7.12, PCO2 of 18 and PO2 of 83 consistent with severe metabolic acidosis with compensatory respiratory alkalosis. Her potassium came down from 8.8 down to 5.3 after dialysis. Her creatinine came down from 8.47 down to 4.53 after dialysis. Her lactic acid was normal. She was hypotensive and tachycardic consistent with shock which is probably hypovolemic shock and was treated with aggressive IV fluid therapy. No vasopressors required. Her end ileostomy stoma was dark lu and dusky in color. General surgery consulted who recommended to do a CT scan abdomen and pelvis without contrast that revealed dilated small bowel loops. There was a concern that she may have ischemia of the stoma. General surgery recommended to transfer the patient to [facility] where she had her surgery done. I contacted the transfer line of the [facility] and I spoke with the surgical ICU staff including Dr. Melendrez who accepted the patient in transfer for further medical treatment. Patient transferred to [facility] in [place] in a guarded medical condition. Home Medications: Medications to take at Discharge Aspirin [Aspir-Low] 81 mg PO DAILY 10/21/16 Calcium Carbonate/Vitamin D3 [Calcium 600 + Vit D Caplet] 1 each PO BID Ferrous Sulfate 325 mg PO BID 10/21/16 Fluoxetine HCl 40 mg PO BID 10/21/16 Folic Acid 1 mg PO DAILY@0800 10/21/16 Hydrochlorothiazide 12.5 mg PO DAILY 10/21/16 Multivitamins,Ther W-Minerals [Multivitamin With Minerals] 1 tablet PO DAILY 03/30 Omeprazole [Prilosec] 20 mg PO DAILY 10/21/16 Oxybutynin [Ditropan] 10 mg PO DAILY 10/21/16 Potassium Chloride [K-Dur] 20 meq PO BID 10/21/16 Pramipexole Di-HCl [Mirapex] 0.25 mg PO DAILY 10/21/16 Quetiapine Fumarate [Seroquel] 25 mg PO DAILY 10/21/16 Quetiapine Fumarate [Seroquel] 400 mg PO DAILY 10/21/16 Sodium Bicarbonate 650 mg PO DAILY 10/21/16 Valproic Acid [Depakene] 250 mg PO TID 10/21/16 Vitamin E 400 units PO TID 10/21/16 Lisinopril [Zestril] 20 mg PO DAILY 09/30/17 Loperamide [Imodium] 2 mg PO BID PRN PRN 09/30/17 Mirtazapine [Remeron] 15 mg PO QHS 09/30/17 Sodium Bicarbonate 1,300 mg PO DAILY 09/30/17 Spironolactone [Aldactone] 25 mg PO DAILY 09/30/17 Primary Care Physician: Darshan Burns [Primary Care Provider] - Disposition: Acute care Hospital Minutes spent on discharge:: 35 Patient Condition:: Guarded Medical Necessity - Tobacco Use Smoking Status: Current every day smoker Tobacco Use: - - Unknown at this time. Meaningful Use Info Meaningful Use Diagnoses (Choose all that apply): None applicable Code Visit Inpatient E&M: 56985 Disch Hosp
--- NOTE | 2017-10-01 15:55 | DIALYSIS ---
Pt ran 2.5 hr;2201; +800 cc at end of tx; confused/restless/combative; hypotensive during tx; Q 15 min flushes for patency hx clotting; Dr. Mcclure aware: lines revresed d/t no pull on Art line; next tx at as pt being transferred out.
[2017-10-01] MEDS: Famotidine 20 MG Tablet PO (16:24)
--- NOTE | 2017-10-01 20:15 | NURSING ---
Mobile ICU transport team here to transport pt to , pt and team left ICU @ 2020.
== END 2017-10-01 20:20 | disposition short-term general hospital (02) | DRG 682 ==
LOC: ED 12:16 → ICU 13:54
PROVIDERS: Internal Medicine Critical Care Medicine; Internal Medicine Nephrology; Admitting Provider Internal Medicine; Emergency Provider Emergency Medicine; Family Provider Family Medicine; PCP Family Medicine; Visit Provider Hospitalist
DX: N17.0 Acute kidney failure with tubular necrosis (principal); G93.41 Metabolic encephalopathy; R57.1 Hypovolemic shock; E87.2 Acidosis; E44.0 Moderate protein-calorie malnutrition; K55.9 Vascular disorder of intestine, unspecified; Z68.1 Body mass index [BMI] 19.9 or less, adult; F10.239 Alcohol dependence with withdrawal, unspecified; E87.3 Alkalosis; N17.1 Acute kidney failure with acute cortical necrosis; N18.3 Chronic kidney disease, stage 3 (moderate); L89.211 Pressure ulcer of right hip, stage 1; E87.5 Hyperkalemia; I12.9 Hypertensive chronic kidney disease with stage 1 through stage 4 chronic kidney disease, or unspecified chronic kidney disease; F32.9 Major depressive disorder, single episode, unspecified; F17.200 Nicotine dependence, unspecified, uncomplicated; Z91.81 History of falling; Z93.2 Ileostomy status; Z90.49 Acquired absence of other specified parts of digestive tract; Z79.82 Long term (current) use of aspirin; Z93.3 Colostomy status; Z99.2 Dependence on renal dialysis
CPT/HCPCS: 36415; 36600; 51702; 70450; 71045; 71046; 72125; 72170; 74018; 74176; 80048; 80053; 80076; 80164; 80320; 81001; 82550; 82570; 82803; 83605; 83690; 84300; 84484; 85025; 85027; 85610; 85730; 87040; 87086; 87493; 87641; 90937; 93005; 94640; 97802; 99285; J7030; J7050; A4216; C1752; G0257; G0480; J0610; J2405; J3490